=== PATIENT | female | born 1965 | race American Indian/Alaskan Native ===

== ENCOUNTER 2020-06-08 00:09 | Inpatient (IN) | payer OTHER ==
--- NOTE | 2020-06-08 03:21 | Emergency Department Report ---
ED Syncope HPI - General Chief Complaint: Weakness Stated Complaint: WEAKNESS Time Seen by Provider: 06/08/20 03:15 Source: patient Exam Limitations: no limitations - History of Present Illness Initial Comments: Patient is a 55-year-old female that presents emergency room with complaints of weakness, syncope, ankle pain. Patient states she is 1 week since yesterday and passed out this evening. Patient states she then called the ambulance. Patient dates when she passed out she twisted her left ankle. Patient denies hitting her head. Patient denies any other trauma except for her ankle. Patient states her left ankle pain is a 8 out of 10. Patient states the pain is better with rest and worse with movement and walking. Patient states ambulating is difficulty. Patient states she still feels weak but no other symptoms except for ankle pain. Patient denies blurry vision. Patient states her loss of consciousness was brief. Patient denies chest pain or shortness of breath. Patient denies abdominal pain. Patient denies headache. Patient denies fever and chills. Patient denies recent travel. Patient denies recent international travel. Patient denies exposure to the novel coronavirus. Patient denies sick contacts. Patient denies fever and chills. Patient denies cough. Patient denies diarrhea. Patient denies coming in contact with anybody with symptoms of the novel coronavirus. Timing/Prior Episodes: single episode today Context: standing Loss of Consciousness: brief (seconds) Current Symptoms: weakness - Related Data Allergies/Adverse Reactions: Allergies No Known Allergies Allergy (Unverified 10/31/15 13:23) Home Medications: Ambulatory Orders Insulin NPH/Regular [Novolin 70/30] 28 unit SQ QDDIAB #1 vial 11/01/15 Pantoprazole [Protonix TAB] 20 mg PO BID #60 tablet. 11/01/15 Syringe-Needle,Insulin,0.5 ml [Advocate Syringes] 1 each MC BID #1 box 11/01/15 lisinopriL [Zestril] 20 mg PO QDAY 11/01/15 ED Review of Systems ROS: Stated complaint: WEAKNESS Other details as noted in HPI Constitutional: weakness. denies: chills, fever Eyes: denies: eye pain, eye discharge, vision change ENT: denies: ear pain, throat pain Respiratory: denies: cough, shortness of breath, wheezing Cardiovascular: denies: chest pain, palpitations Endocrine: no symptoms reported Gastrointestinal: denies: abdominal pain, nausea, diarrhea Genitourinary: denies: urgency, dysuria, discharge Musculoskeletal: denies: back pain, joint swelling, arthralgia Skin: denies: rash, lesions Neurological: as per HPI, weakness. denies: headache, paresthesias Psychiatric: denies: anxiety, depression Hematological/Lymphatic: denies: easy bleeding, easy bruising ED Past Medical Hx - Past Medical History Previous Medical History?: Yes Hx Hypertension: Yes Hx Diabetes: Yes Hx Renal Disease: No Additional medical history: High Cholesterol. Pancreatitis - Surgical History Past Surgical History?: Yes Additional Surgical History: Tubal ligation - Family History Family history: no significant - Social History Smoking Status: Never Smoker Substance Use Type: None - Medications Home Medications: Home Medications Medication Instructions Recorded Confirmed Last Taken Type Insulin NPH/Regular [Novolin 70/30] 28 unit SQ QDDIAB #1 vial 11/01/15 Unknown Rx Pantoprazole [Protonix TAB] 20 mg PO BID #60 tablet.dr 11/01/15 Unknown Rx Syringe-Needle,Insulin,0.5 ml 1 each MC BID #1 box 11/01/15 Unknown Rx [Advocate Syringes] lisinopriL [Zestril] 20 mg PO QDAY 11/01/15 11/01/15 04/16/15 History ED Physical Exam - General Limitations: No Limitations General appearance: alert, in no apparent distress - Head Head exam: Present: atraumatic, normocephalic - Eye Eye exam: Present: normal appearance - ENT ENT exam: Present: mucous membranes moist - Neck Neck exam: Present: normal inspection - Respiratory Respiratory exam: Present: normal lung sounds bilaterally. Absent: respiratory distress - Cardiovascular Cardiovascular Exam: Present: regular rate, normal rhythm. Absent: systolic murmur, diastolic murmur, rubs, gallop - GI/Abdominal GI/Abdominal exam: Present: soft, normal bowel sounds - Extremities Exam Extremities exam: Present: normal inspection, tenderness (To left ankle) - Back Exam Back exam: Present: normal inspection - Neurological Exam Neurological exam: Present: alert, oriented X3 - Psychiatric Psychiatric exam: Present: normal affect, normal mood - Skin Skin exam: Present: warm, dry, intact, normal color. Absent: rash ED Course Vital Signs 06/08/20 06/08/20 06/08/20 02:28 05:12 05:13 Temperature 97.3 F L Pulse Rate 59 L 59 L Respiratory 18 9 L Rate Blood Pressure 78/52 Blood Pressure 100/78 [left arm] O2 Sat by Pulse 100 100 Oximetry - Reevaluation(s) Reevaluation #1: Patient placed on calibration laboratory technician. Patient's blood pressure is improved. 06/08/20 03:19 Reevaluation #2: Patient's fluids have been started. Patient found to have hyponatremia. 06/08/20 04:20 Reevaluation #3: I discussed all results with patient. I discussed plan of care with patient. Patient agrees with plan of care and admission. Patient to be admitted to the hospitalist service. 06/08/20 05:20 - Consultations Consultation #1: Nephrology paged 06/08/20 04:51 I spoke with nephrology, Dr. Sánchez. Dr. Sánchez wants patient placed on normal saline and admitted to the hospitalist service. 06/08/20 04:53 Consultation #2: Hospitalist consulted for admission. Hospitalist to admit patient. 06/08/20 04:54 ED Medical Decision Making - Lab Data Result diagrams: 06/08/20 02:45 06/08/20 02:45 - EKG Data -: EKG Interpreted by Me EKG shows normal: sinus rhythm, axis, intervals, QRS complexes, ST-T waves Rate: normal - Radiology Data Radiology results: report reviewed, image reviewed interpreted by me: Chest x-ray: No pneumonia, no pneumothorax, no foreign body, no osseous finding s, no acute findings LEFT ANKLE 3 VIEWS INDICATION / CLINICAL INFORMATION: left ankle pain COMPARISON: None available. FINDINGS: BONES / JOINT(S): No acute fracture or subluxation. No significant arthritis. There is subjective osteopenia. There is spurring on the calcaneus at the insertion site of the plantar fascia. SOFT TISSUES: Atherosclerotic calcifications are noted in the posterior tibial artery ADDITIONAL FINDINGS: None. CHEST 1 VIEW INDICATION / CLINICAL INFORMATION: Syncope. COMPARISON: 10/31/2015 FINDINGS: SUPPORT DEVICES: None. HEART / MEDIASTINUM: No significant abnormality. LUNGS / PLEURA: No significant pulmonary or pleural abnormality.. No pneumothorax. ADDITIONAL FINDINGS: No significant additional findings. IMPRESSION: 1. No acute findings. CT HEAD WITHOUT CONTRAST INDICATION: Syncope TECHNIQUE: Axial slices were obtained through the head. Coronal and sagittal reformatted images were obtained. COMPARISON: None available. FINDINGS: There is no intracranial hemorrhage or extra-axial fluid collection. There is mild atrophy and microangiopathic change. The ventricles are normal in size and position. The basal cisterns are maintained. There is no mass lesion or midline shift. No acute territorial infarct is identified. Bone windows demonstrate no acute osseous abnormality. Paranasal sinuses and mastoid air cells appear clear. TECHNIQUE: All CT scans at this facility use dose modulation, iterative reconstruction, automated exposure control, weight based dosing, when appropriate, to reduce radiation dose to as low as reasonably achievable. IMPRESSION: 1. No acute intracranial abnormality. 2. There is mild cortical atrophy and microangiopathic change - Medical Decision Making Patient is a 55-year-old female that presents emergency room with complaints of syncopal episode and weakness. Patient states during her syncopal episode she injured her left ankle. Patient had a head CT and it was negative for acute findings. Patient had a chest x-ray was negative for acute findings. Patient's ankle x-ray was negative. Patient initially found to be hypotensive. Patient's blood pressure improved on its own. Patient had labs done which were consistent with renal failure, hyponatremia and anemia. Patient admitted to the hospitalist service for further evaluation treatment. Nephrology consult. Nephrology recommendations received. Nephrology recommended normal saline and admission. - Differential Diagnosis Electrolyte imbalance, dehydration, syncope, weakness, Critical Care Time: Yes Critical care time in (mins) excluding proc time.: 35 Critical care attestation.: If time is entered above; I have spent that time in minutes in the direct care of this critically ill patient, excluding procedure time. Critical Care Time: 35 minutes ED Disposition Clinical Impression: Hyponatremia, Hyperglycemia, Abnormal LFTs (liver function tests), Weakness Renal failure Qualifiers: Renal failure chronicity: acute Acute renal failure type: unspecified Qualified Code(s): N17.9 - Acute kidney failure, unspecified Syncope Qualifiers: Syncope type: unspecified Qualified Code(s): R55 - Syncope and collapse Ankle pain, left Qualifiers: Chronicity: acute Qualified Code(s): M25.572 - Pain in left ankle and joints of left foot Left ankle sprain Qualifiers: Encounter type: initial encounter Involved ligament of ankle: unspecified ligament Qualified Code(s): S93.402A - Sprain of unspecified ligament of left ankle, initial encounter Anemia Qualifiers: Anemia type: unspecified type Qualified Code(s): D64.9 - Anemia, unspecified Hypotension Qualifiers: Hypotension type: unspecified hypotension type Qualified Code(s): I95.9 - Hypotension, unspecified Disposition: OP ADMIT IP TO THIS HOSP Is pt being admited?: Yes Does the pt Need Aspirin: No Condition: Critical Time of Disposition: 05:22
--- NOTE | 2020-06-08 03:27 | XRay Report ---
LEFT ANKLE 3 VIEWS INDICATION / CLINICAL INFORMATION: left ankle pain COMPARISON: None available. FINDINGS: BONES / JOINT(S): No acute fracture or subluxation. No significant arthritis. There is subjective ost eopenia. There is spurring on the calcaneus at the insertion site of the plantar fascia. SOFT TISSUES: Atherosclerotic calcifications are noted in the posterior tibial artery ADDITIONAL FINDINGS: None. Signer Name: Lebron Lemus MD Signed: 06/08/2020 3:23 AM Workstation Name: [id number]
[2020-06-08 03:33] LABS: Hematocrit 29.3 % (30.3-42.9); Hemoglobin 9.7 gm/dl (10.1-14.3); Mean Corpuscular HGB Conc 33 % (30-34); Mean Corpuscular Volume 76 fl (79-97); Platelet Count 190 K/mm3 (140-440); Red Blood Count 3.85 M/mm3 (3.65-5.03); Red Cell Distribution Width 15.3 % (13.2-15.2)
[2020-06-08 03:45] LABS: Basophils # (Auto) 0.1 K/mm3 (0.0-0.1); Basophils % (Auto) 1.4 % (0.0-1.8); Eosinophils % (Auto) 1.2 % (0.0-4.3); Lymphocytes # (Auto) 0.5 K/mm3 (1.2-5.4); Lymphocytes % (Auto) 12.2 % (13.4-35.0); Monocytes # (Auto) 0.6 K/mm3 (0.0-0.8); Monocytes % (Auto) 14.9 % (0.0-7.3)
--- NOTE | 2020-06-08 03:56 | XRay Report ---
CHEST 1 VIEW INDICATION / CLINICAL INFORMATION: Syncope. COMPARISON: 10/31/2015 FINDINGS: SUPPORT DEVICES: None. HEART / MEDIASTINUM: No significant abnormality. LUNGS / PLEURA: No significant pulmonary or pleural abnormality.. No pneumothorax. ADDITIONAL FINDINGS: No significant additional findings. IMPRESSION: 1. No acute findings. Signer Name: Lebron Lemus MD Signed: 06/08/2020 3:51 AM Workstation Name: [employer]ING [id number]
[2020-06-08 03:58] LABS: Albumin 3.3 g/dL (3.9-5); Calcium 9.2 mg/dL (8.4-10.2)
--- NOTE | 2020-06-08 04:02 | Cat Scan Report ---
CT HEAD WITHOUT CONTRAST INDICATION: Syncope TECHNIQUE: Axial slices were obtained through the head. Coronal and sagittal reformatted images were obtained. COMPARISON: None available. FINDINGS: There is no intracranial hemorrhage or extra-axial fluid collection. There is mild atrophy and microa ngiopathic change. The ventricles are normal in size and position. The basal cisterns are maintained. There is no mass lesion or midline shift. No acute territorial infarct is identified. Bone windows demonstrate no acute osseous abnormality. Paranasal sinuses and mastoid air cells appear clear. TECHNIQUE: All CT scans at this facility use dose modulation, iterative reconstruction, automated ex posure control, weight based dosing, when appropriate, to reduce radiation dose to as low as reasonab ly achievable. IMPRESSION: 1. No acute intracranial abnormality. 2. There is mild cortical atrophy and microangiopathic change Signer Name: Lebron Lemus MD Signed: 06/08/2020 3:58 AM Workstation Name: [id number]
[2020-06-08 04:36] LABS: Bilirubin,Urine NEG (Negative); Blood,Urine NEG (Negative); Color,Urine Yellow (Yellow); Mucus,Urine FEW /HPF; Protein,Urine <15 mg/dL mg/dL (Negative); Urobilinogen,Urine < 2.0 mg/dL (<2.0)
[2020-06-08 04:51] LABS: Creatine Kinase MB 3.1 ng/mL (0.0-4.0)
[2020-06-08] MEDS ORDERED: SODIUM CHLORIDE 0.9% 1000 ML 1,000 ML IV ONE ×2 (04:58→05:01)
--- NOTE | 2020-06-08 09:39 | Consultation ---
History of Present Illness - Reason for Consult Consult date: 06/08/20 acute renal failure, hyponatremia - History of Present Illness The patient is a 55 YO female with history significant for Dm type 2, HTN and HLD who presented to [facility] ED 06/08 with complaints of generalized weakness and passing out. Patient is a poor historian. She states that she has been passing out since last week. Patient admits twisting her left ankle when she passed out. Patient denies hitting her head. Patient states she lost some weight, couldn't give me more details. Patient denies N, V, D, abd pain, blurry vision, chest pain, shortness of breath, headache, fever or chills. Patient denies recent travel or exposure to anyone with coronavirus infection. Initial BP was 78/52. Labs significant for Sodium 119, BUN 45, Creat 3 and glucose 369. Nephrology was consulted for further evaluation. Past History Past Medical History: diabetes, hypertension, hyperlipidemia Medications and Allergies Allergies Allergy/AdvReac Type Severity Reaction Status Date / Time No Known Allergies Allergy Unverified 10/31/15 13:23 Home Medications Medication Instructions Recorded Confirmed Last Taken Type AtorvaSTATin [Lipitor] 20 mg PO QHS 06/08/20 06/08/20 Unknown History Esomeprazole Magnesium [NexIUM] 40 mg PO QDAY 06/08/20 06/08/20 Unknown History Folic Acid [Folvite] 1 mg PO QDAY 06/08/20 06/08/20 Unknown History Furosemide [Lasix TAB] 20 mg PO DAILY 06/08/20 06/08/20 Unknown History Gabapentin 400 mg PO DAILY 06/08/20 06/08/20 Unknown History Ibuprofen [Motrin] 800 mg PO Q8HR PRN 06/08/20 06/08/20 Unknown History Insulin Lispro [Humalog Yeyo 100 unit SQ DAILY 06/08/20 06/08/20 Unknown History Kwikpen] Methocarbamol [Robaxin] 750 mg PO DAILY 06/08/20 06/08/20 Unknown History Pregabalin [Lyrica] 150 mg PO DAILY 06/08/20 06/08/20 Unknown History Sertraline [Zoloft] 50 mg PO DAILY 06/08/20 06/08/20 Unknown History Spironolactone [Aldactone] 50 mg PO QDAY 06/08/20 06/08/20 Unknown History traZODone [Desyrel] 50 mg PO QHS 06/08/20 06/08/20 Unknown History Exam - Vital Signs Vital signs: Vital Signs Temp Pulse Resp BP Pulse Ox 97.3 F L 59 L 18 78/52 100 06/08/20 02:28 06/08/20 02:28 06/08/20 02:28 06/08/20 02:28 06/08/20 02:28 Results - Lab Results 06/08/20 02:45 06/08/20 10:07 Most recent lab results Calcium 9.2 mg/dL (8.4-10.2) 06/08/20 02:45 Assessment and Plan 1. Acute kidney injury: Vasomotor nephropathy in the setting of volume depletion and hypotension. Renal US negative for hydro. Urine studies ordered. Monitor renal function. Repeat labs pending. Avoid nephrotoxic agents. Meds dosage based on GFR. 2. FEN: Acute Hyponatremia, 2/2 volume depletion, continue 0.9% saline, monitor. Initial corrected Sodium level was 125. Monitor lytes. 3. Syncope: Likely from hypotension. Place on remote telemetry. Ultrasound carotid and Echocardiogram ordered. 4. Ankle pain, left: X-ray of left ankle negative for any fracture. Pain medications as needed 5. Chronic pancreatitis: Needs to follow-up with Mason Foreman/Superintendant in the office for complete work-up. 6. Diabetes mellitus: Sliding scale insulin. 7. Hypertension: initial hypotension. Monitor blood pressure closely. Subjective: Patient was seen and examined at the bedside. - General Appearance General appearance: well-developed, well-nourished, appears stated age, no distress HEENT: ATNC, SONNY, hearing intact, vision intact Neck: supple Respiratory: ctab Cardiology: regular, S1S2, no murmur Gastrointestinal: normoactive bowel sounds, no tenderness, not distended Integumentary: no obvious rash Neurologic: no asterixis, alert and oriented x3, able to move extremities Ext: no edema noted Psychiatric: cooperative
--- NOTE | 2020-06-08 10:24 | History and Physical Report ---
History of Present Illness Date of admission: 06/08/20 05:23 Chief complaint: Lethargy History of present illness: 55-year-old female with a medical history of HTN, DM, GERD, depression and med ication Noncompliance who presents to the emergency room with chief complaints of generalized weakness. Patient states that she has been having generalized weakness for about a week prior to presentation. She also notes that she may have lost some weight in the past 1 month. She denies any change in her diet but states that each time she eats, she has a bowel movement immediately afterwards. She mentions that she has had colonoscopy in the past but is unsure about the timing. History during my encounter was limited as patient was very lethargic. On the day of presentation, patient reportedly got up and then passed out. She twisted her ankle in the process. She denies any trauma to her head. She said that she called the ambulance due to severe ankle pain as it was worse with movement. She says she may have lost consciousness but she is unsure. Patient denies chest pain or shortness of breath. Patient denies abdominal pain. Patient denies headache. Patient denies fever and chills. Patient denies recent travel. Patient denies recent international travel. Patient denies exposure to the novel coronavirus. Patient denies sick contacts. Patient denies fever and chills. Patient denies cough. In emergency room, patient was noted to have sodium of 119 so she was then a dmitted to the hospital. X-ray of the left ankle is negative for any fracture. Past History Past Medical History: diabetes, GERD, hypertension Medications and Allergies Allergies Allergy/AdvReac Type Severity Reaction Status Date / Time No Known Allergies Allergy Unverified 10/31/15 13:23 Home Medications Medication Instructions Recorded Confirmed Last Taken Type AtorvaSTATin [Lipitor] 20 mg PO QHS 06/08/20 06/08/20 Unknown History Esomeprazole Magnesium [NexIUM] 40 mg PO QDAY 06/08/20 06/08/20 Unknown History Folic Acid [Folvite] 1 mg PO QDAY 06/08/20 06/08/20 Unknown History Furosemide [Lasix TAB] 20 mg PO DAILY 06/08/20 06/08/20 Unknown History Gabapentin 400 mg PO DAILY 06/08/20 06/08/20 Unknown History Ibuprofen [Motrin] 800 mg PO Q8HR PRN 06/08/20 06/08/20 Unknown History Insulin Lispro [Humalog Yeyo 100 unit SQ DAILY 06/08/20 06/08/20 Unknown History Kwikpen] Methocarbamol [Robaxin] 750 mg PO DAILY 06/08/20 06/08/20 Unknown History Pregabalin [Lyrica] 150 mg PO DAILY 06/08/20 06/08/20 Unknown History Sertraline [Zoloft] 50 mg PO DAILY 06/08/20 06/08/20 Unknown History Spironolactone [Aldactone] 50 mg PO QDAY 06/08/20 06/08/20 Unknown History traZODone [Desyrel] 50 mg PO QHS 06/08/20 06/08/20 Unknown History Review of Systems ROS unobtainable: due to mental status Exam - Physical Exam Narrative exam: VITAL SIGNS: Reviewed. GENERAL: Drowsy HEAD: No signs of head trauma. EYES: Pupils are equal. Extraocular motions intact. EARS: Hearing grossly intact. MOUTH: Oropharynx is normal. NECK: No adenopathy, no JVD. CHEST: Chest with diminished breath sounds bilaterally. No wheezes, rales, or rhonchi. CARDIAC: Regular rate and rhythm. S1 and S2, without murmurs, gallops, or rubs. VASCULAR: No Edema. Peripheral pulses normal and equal in all extremities. ABDOMEN: Soft, non tender and non distended. No rebound or guarding, and no masses palpated. Bowel Sounds normal. MUSCULOSKELETAL: Left ankle-slightly swollen with ROM limited NEUROLOGIC EXAM: Drowsy SKIN: No obvious lesions - Constitutional Vitals: Temp Pulse Resp BP Pulse Ox 97.3 F L 60 16 112/71 98 06/08/20 02:28 06/08/20 10:12 06/08/20 10:12 06/08/20 10:12 06/08/20 10:12 HEART Score - HEART Score Troponin: Troponin T < 0.010 ng/mL (0.00-0.029) 06/08/20 03:59 Results - Labs CBC & Chem 7: 06/08/20 02:45 06/08/20 02:45 Labs: Laboratory Last Values WBC 4.2 K/mm3 (4.5-11.0) L 06/08/20 02:45 RBC 3.85 M/mm3 (3.65-5.03) 06/08/20 02:45 Hgb 9.7 gm/dl (10.1-14.3) L 06/08/20 02:45 Hct 29.3 % (30.3-42.9) L 06/08/20 02:45 MCV 76 fl (79-97) L 06/08/20 02:45 MCH 25 pg (28-32) L 06/08/20 02:45 MCHC 33 % (30-34) 06/08/20 02:45 RDW 15.3 % (13.2-15.2) H 06/08/20 02:45 Plt Count 190 K/mm3 (140-440) 06/08/20 02:45 Lymph % (Auto) 12.2 % (13.4-35.0) L 06/08/20 02:45 [place] % (Auto) 14.9 % (0.0-7.3) H 06/08/20 02:45 Eos % (Auto) 1.2 % (0.0-4.3) 06/08/20 02:45 Baso % (Auto) 1.4 % (0.0-1.8) 06/08/20 02:45 Lymph # (Auto) 0.5 K/mm3 (1.2-5.4) L 06/08/20 02:45 [place] # (Auto) 0.6 K/mm3 (0.0-0.8) 06/08/20 02:45 Eos # (Auto) 0.0 K/mm3 (0.0-0.4) 06/08/20 02:45 Baso # (Auto) 0.1 K/mm3 (0.0-0.1) 06/08/20 02:45 Seg Neutrophils % 70.3 % (40.0-70.0) H 06/08/20 02:45 Seg Neutrophils # 3.0 K/mm3 (1.8-7.7) 06/08/20 02:45 D-Dimer 257.50 ng/mlDDU (0-234) H 06/08/20 03:59 Sodium 119 mmol/L (137-145) L* 06/08/20 02:45 Potassium 4.6 mmol/L (3.6-5.0) 06/08/20 02:45 Chloride 81.7 mmol/L (98-107) L 06/08/20 02:45 Carbon Dioxide 22 mmol/L (22-30) 06/08/20 02:45 Anion Gap 20 mmol/L 06/08/20 02:45 BUN 45 mg/dL (7-17) H 06/08/20 02:45 Creatinine 3.0 mg/dL (0.6-1.2) H 06/08/20 02:45 Estimated GFR 19 ml/min 06/08/20 02:45 BUN/Creatinine Ratio 15 % 06/08/20 02:45 Glucose 369 mg/dL (65-100) H 06/08/20 02:45 Calcium 9.2 mg/dL (8.4-10.2) 06/08/20 02:45 Total Bilirubin 0.80 mg/dL (0.1-1.2) 06/08/20 02:45 AST 31 units/L (5-40) 06/08/20 02:45 ALT 102 units/L (7-56) H 06/08/20 02:45 Alkaline Phosphatase 165 units/L (35-129) H 06/08/20 02:45 Total Creatine Kinase 57 units/L (30-135) 06/08/20 03:59 CK-MB (CK-2) 3.1 ng/mL (0.0-4.0) 06/08/20 03:59 CK-MB (CK-2) Rel Index 5.4 (0-4) H 06/08/20 03:59 Troponin T < 0.010 ng/mL (0.00-0.029) 06/08/20 03:59 Total Protein 6.3 g/dL (6.3-8.2) 06/08/20 02:45 Albumin 3.3 g/dL (3.9-5) L 06/08/20 02:45 Albumin/Globulin Ratio 1.1 % 06/08/20 02:45 Lipase 6 units/L (13-60) L 06/08/20 02:45 Urine Color Yellow (Yellow) 06/08/20 Unknown Urine Turbidity Clear (Clear) 06/08/20 Unknown Urine pH 5.0 (5.0-7.0) 06/08/20 Unknown Ur Specific [place] 1.014 (1.003-1.030) 06/08/20 Unknown Urine Protein <15 mg/dl mg/dL (Negative) 06/08/20 Unknown Urine Glucose (UA) >=500 mg/dL (Negative) 06/08/20 Unknown Urine Ketones Neg mg/dL (Negative) 06/08/20 Unknown Urine Blood Neg (Negative) 06/08/20 Unknown Urine Nitrite Neg (Negative) 06/08/20 Unknown Urine Bilirubin Neg (Negative) 06/08/20 Unknown Urine Urobilinogen < 2.0 mg/dL (<2.0) 06/08/20 Unknown Ur Leukocyte Esterase Neg (Negative) 06/08/20 Unknown Urine WBC (Auto) 3.0 /HPF (0.0-6.0) 06/08/20 Unknown Urine RBC (Auto) 9.0 /HPF (0.0-6.0) 06/08/20 Unknown U Epithel Cells (Auto) 1.0 /HPF (0-13.0) 06/08/20 Unknown Urine Mucus Few /HPF 06/08/20 Unknown Tracey/IV: IV Catheter Type [left forearm Peripheral IV ] Assessment and Plan - Patient Problems (1) Hyponatremia Current Visit: Yes Status: Acute Plan to address problem: Patient has severe hyponatremia-sodium 119 Check osmolality and serum, urine osmolality and urine electrolytes. TSH cortisol Continue IV normal saline Nephrology has been consulted. May need tolvaptan if not improving BMP every 6 hours Hold Lasix and Aldactone for now (2) Syncope Current Visit: Yes Status: Acute Qualifiers: Syncope type: unspecified Qualified Code(s): R55 - Syncope and collapse Plan to address problem: Place on remote telemetry for now Ultrasound carotid. Echocardiogram (3) Ankle pain, left Current Visit: Yes Status: Acute Qualifiers: Chronicity: acute Qualified Code(s): M25.572 - Pain in left ankle and joints of left foot Plan to address problem: X-ray of left ankle negative for any fracture Pain medications as needed (4) Chronic pancreatitis Current Visit: No Status: Acute Plan to address problem: Patient reports loose stools after eating May need supplemental pancreatic enzymes Needs to follow-up with animal nutrition consultant in the office for complete work-up (5) Diabetes mellitus Current Visit: Yes Status: Acute Plan to address problem: Check hemoglobin A1c Sliding scale insulin (6) Hypertension Current Visit: Yes Status: Acute Plan to address problem: Monitor blood pressure closely (7) GERD (gastroesophageal reflux disease) Current Visit: Yes Status: Acute Plan to address problem: PPI (8) DVT prophylaxis Current Visit: No Status: Acute Plan to address problem: Heparin
--- NOTE | 2020-06-08 10:27 | Ultrasound Report ---
ULTRASOUND RENAL INDICATION: Acute renal failure.. Acute renal failure. COMPARISON: No relevant prior imaging study available. FINDINGS: RIGHT KIDNEY: Size: 11.62 cm. Echogenicity: Minimum increased echogenicity. Cortical thickness: 1.64 cm. Hydronephrosis: None. Cyst or mass: None. Stones: None. LEFT KIDNEY: Size: 11.3 cm. Echogenicity: Normal. Cortical thickness: 1.89 cm. Hydronephrosis: None. Cyst or mass: None. Stones: None. Urinary Bladder: No significant abnormality. Free Fluid: None. Additional Findings: None. IMPRESSION 1. No acute sonographic abnormality of the kidneys. Please see comments Signer Name: Lele Houston MD Signed: 06/08/2020 10:22 AM Workstation Name: [id number]
[2020-06-08 10:30] LABS: Creatinine,Urine 33.2 mg/dL (0.1-20.0); Protein/Creatinine Ratio,Urine 0.42
[2020-06-08 10:46] LABS: Calcium 9.3 mg/dL (8.4-10.2)
[2020-06-08 10:50] LABS: Uric Acid 9.3 mg/dL (3.5-7.6)
[2020-06-08] MEDS ORDERED: SODIUM POLYSTYRENE 15 GM/60 ML ORAL LIQD PO NR (10:50)
[2020-06-08] MEDS ORDERED: DEXTROSE 50% IN WATER (25GM) 50 ML SYRINGE IV PRN (11:00)
[2020-06-08] MEDS ORDERED: INSULIN REGULAR, HUMAN 100 UNIT/ML 3ML VIAL ONE (11:10)
[2020-06-08] MEDS ORDERED: INSULIN LISPRO 100 UNIT/ML VIAL 3 mL SUB-Q ONE (11:13)
[2020-06-08] MEDS: INSULIN LISPRO 100 UNIT/ML VIAL 3 mL SUB-Q SCH ×3 (11:15→22:46)
[2020-06-08] MEDS ORDERED: INSULIN GLARGINE 100 UNITS/ML SUB-Q ONE (12:00)
[2020-06-08] MEDS: HEPARIN 5,000 UNIT/1 ML VIAL SUB-Q SCH ×2 (13:24→22:33)
--- NOTE | 2020-06-08 15:56 | Vascular Lab Report ---
CLINICAL DATA: Syncope TECHNICAL DATA: Imaging was performed from the base of the neck to the skull base using duplex sonography and color-f low imaging with emphasis on the carotid and vertebral arterial systems. RIGHT CAROTID ARTERY: The right internal carotid artery, right external carotid, and right common carotid artery all well i heidi and patent. Mild atherosclerotic plaque present at the carotid bifurcation. Right common carotid artery peak systolic velocity 53 cm/sec Right internal carotid artery peak systolic velocity 93 cm/sec Right internal carotid artery end diastolic velocity 43cm/sec Right internal carotid artery/right common carotid artery ratio 1.7 Vertebral artery flow is antegrade. LEFT CAROTID ARTERY The left internal carotid artery, left external carotid, and left common carotid artery all well imag ed and patent. Mild atherosclerotic plaque present at the carotid bifurcation. Left common carotid artery peak systolic velocity 68 cm/sec Left internal carotid artery peak systolic velocity 68 cm/sec Left internal carotid artery end diastolic velocity 28 cm/sec Left internal carotid artery/right common carotid artery ratio 1.0 Normal antegrade flow of the vertebral arteries. IMPRESSION: 1. Sonographic NASCET Index This study proposed the incorporation of distal ICA flow velocity information on the conventional car otid Doppler study improving the diagnostic accuracy of PSV 1. Internal carotids arteries demonstrate <15% stenosis: * deceleration spectral broadening with a peak systolic velocity (PSV) <125 cm/s 2. Less than 50% stenosis common carotid arteries. 3. Less than 50% stenosis external carotid arteries. 4. Antegrade flow both vertebral arteries. Signer Name: Lele Huoston MD Signed: 06/08/2020 3:51 PM Workstation Name: [id number]
[2020-06-08] MEDS ORDERED: SODIUM CHLORIDE 0.9% 1000 ML 1,000 ML IV SCH (16:30)
[2020-06-08 19:48] LABS: Calcium 10.1 mg/dL (8.4-10.2)
[2020-06-08] MEDS ORDERED: INSULIN GLARGINE 100 UNITS/ML SUB-Q SCH (22:00)
[2020-06-08] MEDS ORDERED: SODIUM CHLORIDE 0.45% 1000 ML 1,000 ML IV SCH (22:00)
[2020-06-08] MEDS: PREGABALIN 75 MG CAP PO SCH (22:34)
[2020-06-09 02:27] LABS: Calcium 9.4 mg/dL (8.4-10.2)
[2020-06-09 05:21] LABS: Basophils % (Auto) 0.7 % (0.0-1.8); Eosinophils # (Auto) 0.1 K/mm3 (0.0-0.4); Eosinophils % (Auto) 1.5 % (0.0-4.3); Hematocrit 30.7 % (30.3-42.9); Hemoglobin 10.2 gm/dl (10.1-14.3); Lymphocytes # (Auto) 1.3 K/mm3 (1.2-5.4); Lymphocytes % (Auto) 22.7 % (13.4-35.0); Mean Corpuscular HGB Conc 33 % (30-34); Mean Corpuscular Volume 77 fl (79-97); Monocytes # (Auto) 0.7 K/mm3 (0.0-0.8); Monocytes % (Auto) 13.2 % (0.0-7.3); Platelet Count 159 K/mm3 (140-440); Red Blood Count 3.99 M/mm3 (3.65-5.03); Red Cell Distribution Width 15.5 % (13.2-15.2)
[2020-06-09 05:57] LABS: Calcium 9.7 mg/dL (8.4-10.2)
[2020-06-09] MEDS: HEPARIN 5,000 UNIT/1 ML VIAL SUB-Q SCH ×3 (06:01→21:12)
[2020-06-09] MEDS: INSULIN LISPRO 100 UNIT/ML VIAL 3 mL SUB-Q SCH ×4 (08:27→21:47)
--- NOTE | 2020-06-09 09:45 | Progress Note ---
Assessment and Plan - Patient Problems (1) Hyponatremia Current Visit: Yes Status: Acute Plan to address problem: Patient admitted with hyponatremia-sodium 119 Check osmolality and serum, urine osmolality and urine electrolytes. TSH cortisol Started on IV normal saline Sodium has improved to 133 today. Holding Lasix and Aldactone for now Nephrology recommendations appreciated (2) Syncope Current Visit: Yes Status: Acute Qualifiers: Syncope type: unspecified Qualified Code(s): R55 - Syncope and collapse Plan to address problem: Place on remote telemetry for now Ultrasound carotid. Echocardiogram pending (3) Ankle pain, left Current Visit: Yes Status: Acute Qualifiers: Chronicity: acute Qualified Code(s): M25.572 - Pain in left ankle and joints of left foot Plan to address problem: X-ray of left ankle negative for any fracture Pain medications as needed (4) Chronic pancreatitis Current Visit: No Status: Acute Plan to address problem: Patient reports loose stools after eating May need supplemental pancreatic enzymes Needs to follow-up with engineering technical analyst in the office for complete work-up (5) Diabetes mellitus Current Visit: Yes Status: Acute Plan to address problem: Has poorly controlled diabetes with hemoglobin A1c 14 Lantus and sliding scale insulin (6) Hypertension Current Visit: Yes Status: Acute Plan to address problem: Monitor blood pressure closely (7) GERD (gastroesophageal reflux disease) Current Visit: Yes Status: Acute Plan to address problem: PPI (8) DVT prophylaxis Current Visit: No Status: Acute Plan to address problem: Heparin History Interval history: Patient seen and examined at bedside this morning. Her sodium has improved. Nephrology is on board. Transfer from [facility] to the [facility] Hospitalist Physical - Physical exam Narrative exam: VITAL SIGNS: Reviewed. GENERAL: Alert and oriented x3 HEAD: No signs of head trauma. EYES: Pupils are equal. Extraocular motions intact. EARS: Hearing grossly intact. MOUTH: Oropharynx is normal. NECK: No adenopathy, no JVD. CHEST: Chest with diminished breath sounds bilaterally. No wheezes, rales, or rhonchi. CARDIAC: Regular rate and rhythm. S1 and S2, without murmurs, gallops, or rubs. VASCULAR: No Edema. Peripheral pulses normal and equal in all extremities. ABDOMEN: Soft, non tender and non distended. No rebound or guarding, and no masses palpated. Bowel Sounds normal. MUSCULOSKELETAL: Left ankle-slightly swollen with ROM limited NEUROLOGIC EXAM: Alert and oriented x3 SKIN: No obvious lesions - Constitutional Vitals: Temp Pulse Resp BP Pulse Ox 97.5 F L 67 13 104/84 97 06/09/20 08:00 06/09/20 08:01 06/09/20 08:01 06/09/20 08:01 06/09/20 08:01 HEART Score - HEART Score Troponin: Troponin T < 0.010 ng/mL (0.00-0.029) 06/08/20 03:59 Results - Labs CBC & Chem 7: 06/09/20 04:57 06/09/20 04:57 Labs: Laboratory Last Values WBC 5.6 K/mm3 (4.5-11.0) 06/09/20 04:57 RBC 3.99 M/mm3 (3.65-5.03) 06/09/20 04:57 Hgb 10.2 gm/dl (10.1-14.3) 06/09/20 04:57 Hct 30.7 % (30.3-42.9) 06/09/20 04:57 MCV 77 fl (79-97) L 06/09/20 04:57 MCH 26 pg (28-32) L 06/09/20 04:57 MCHC 33 % (30-34) 06/09/20 04:57 RDW 15.5 % (13.2-15.2) H 06/09/20 04:57 Plt Count 159 K/mm3 (140-440) 06/09/20 04:57 Lymph % (Auto) 22.7 % (13.4-35.0) 06/09/20 04:57 [place] % (Auto) 13.2 % (0.0-7.3) H 06/09/20 04:57 Eos % (Auto) 1.5 % (0.0-4.3) 06/09/20 04:57 Baso % (Auto) 0.7 % (0.0-1.8) 06/09/20 04:57 Lymph # (Auto) 1.3 K/mm3 (1.2-5.4) 06/09/20 04:57 [place] # (Auto) 0.7 K/mm3 (0.0-0.8) 06/09/20 04:57 Eos # (Auto) 0.1 K/mm3 (0.0-0.4) 06/09/20 04:57 Baso # (Auto) 0.0 K/mm3 (0.0-0.1) 06/09/20 04:57 Seg Neutrophils % 61.9 % (40.0-70.0) 06/09/20 04:57 Seg Neutrophils # 3.4 K/mm3 (1.8-7.7) 06/09/20 04:57 D-Dimer 257.50 ng/mlDDU (0-234) H 06/08/20 03:59 Sodium 133 mmol/L (137-145) L 06/09/20 04:57 Potassium 4.7 mmol/L (3.6-5.0) 06/09/20 04:57 Chloride 104.6 mmol/L (98-107) 06/09/20 04:57 Carbon Dioxide 18 mmol/L (22-30) L 06/09/20 04:57 Anion Gap 15 mmol/L 06/09/20 04:57 BUN 31 mg/dL (7-17) H 06/09/20 04:57 Creatinine 1.3 mg/dL (0.6-1.2) H 06/09/20 04:57 Estimated GFR 51 ml/min 06/09/20 04:57 BUN/Creatinine Ratio 24 % 06/09/20 04:57 Glucose 51 mg/dL (65-100) L 06/09/20 04:57 POC Glucose 136 mg/dL (70-105) H 06/09/20 08:36 Hemoglobin A1c 14.6 % (4-6) H 06/08/20 10:38 Osmolality 295 Mosm/kg 06/08/20 10:07 Uric Acid 9.3 mg/dL (3.5-7.6) H 06/08/20 10:07 Calcium 9.7 mg/dL (8.4-10.2) 06/09/20 04:57 Phosphorus 3.90 mg/dL (2.5-4.5) 06/08/20 10:07 Magnesium 2.50 mg/dL (1.7-2.3) H 06/08/20 10:07 Total Bilirubin 0.80 mg/dL (0.1-1.2) 06/08/20 02:45 AST 31 units/L (5-40) 06/08/20 02:45 ALT 102 units/L (7-56) H 06/08/20 02:45 Alkaline Phosphatase 165 units/L (35-129) H 06/08/20 02:45 Total Creatine Kinase 57 units/L (30-135) 06/08/20 03:59 CK-MB (CK-2) 3.1 ng/mL (0.0-4.0) 06/08/20 03:59 CK-MB (CK-2) Rel Index 5.4 (0-4) H 06/08/20 03:59 Troponin T < 0.010 ng/mL (0.00-0.029) 06/08/20 03:59 Total Protein 6.3 g/dL (6.3-8.2) 06/08/20 02:45 Albumin 3.3 g/dL (3.9-5) L 06/08/20 02:45 Albumin/Globulin Ratio 1.1 % 06/08/20 02:45 Lipase 6 units/L (13-60) L 06/08/20 02:45 Vitamin B12 < 2000 pg/mL (211-911) H 06/08/20 10:38 Folate < 20.00 ng/mL (7.3-26.0) 06/08/20 10:38 TSH 1.620 mlU/mL (0.270-4.200) 06/08/20 10:38 PTH Intact 57.96 pg/mL (15-65) 06/08/20 10:07 Urine Color Yellow (Yellow) 06/08/20 Unknown Urine Turbidity Clear (Clear) 06/08/20 Unknown Urine pH 5.0 (5.0-7.0) 06/08/20 Unknown Ur Specific [place] 1.014 (1.003-1.030) 06/08/20 Unknown Urine Protein <15 mg/dl mg/dL (Negative) 06/08/20 Unknown Urine Glucose (UA) >=500 mg/dL (Negative) 06/08/20 Unknown Urine Ketones Neg mg/dL (Negative) 06/08/20 Unknown Urine Blood Neg (Negative) 06/08/20 Unknown Urine Nitrite Neg (Negative) 06/08/20 Unknown Urine Bilirubin Neg (Negative) 06/08/20 Unknown Urine Urobilinogen < 2.0 mg/dL (<2.0) 06/08/20 Unknown Ur Leukocyte Esterase Neg (Negative) 06/08/20 Unknown Urine WBC (Auto) 3.0 /HPF (0.0-6.0) 06/08/20 Unknown Urine RBC (Auto) 9.0 /HPF (0.0-6.0) 06/08/20 Unknown U Epithel Cells (Auto) 1.0 /HPF (0-13.0) 06/08/20 Unknown Urine Mucus Few /HPF 06/08/20 Unknown Urine Eosinophils None seen (None Seen) 06/08/20 10:11 Urine Osmolality 299 Mosm/kg 06/08/20 10:11 Urine Creatinine 33.2 mg/dL (0.1-20.0) H 06/08/20 10:11 Protein/Creatinin Ratio 0.42 06/08/20 10:11 Urine Sodium 39 mmol/L 06/08/20 10:11 Urine Total Protein 14 mg/dL (5-11.8) H 06/08/20 10:11 Tracey/IV: Voiding Method External Female Catheter IV Catheter Type [left forearm Peripheral IV ] Active Medications - Current Medications Current Medications: Generic Name Dose Route Start Last Admin Trade Name Freq PRN Reason Stop Dose Admin Dextrose 50 ml 06/08/20 11:00 06/09/20 07:35 D50w (25gm) Syringe IV 50 ml Q30MIN PRN Administration Hypoglycemia Protocol Folic Acid 1 mg 06/09/20 10:00 Folvite PO QDAY LUIS Heparin Sodium (Porcine) 5,000 unit 06/08/20 14:00 06/09/20 06:01 Heparin SUB-Q 5,000 unit Q8HR LUIS Administration Hydromorphone HCl 1 mg 06/08/20 21:00 Dilaudid IV Q4H PRN Pain , Severe (7-10) Sodium Chloride 1,000 mls @ 75 mls/hr 06/08/20 22:00 06/08/20 22:36 Nacl 0.45% 1000 Ml IV 75 mls/hr DIRECT LUIS Administration Insulin Glargine 10 units 06/08/20 22:00 06/08/20 22:45 Lantus SUB-Q 10 units QHS LUIS Administration Insulin Human Lispro 0 unit 06/08/20 11:30 06/09/20 08:27 Humalog SUB-Q Not Given ACHS LUIS Protocol Pregabalin 150 mg 10/23/20 22:00 06/08/20 22:34 Pregabalin PO 150 mg BID LUIS Administration Sertraline HCl 50 mg 06/09/20 10:00 Zoloft PO DAILY LUIS Sodium Chloride 10 ml 06/08/20 22:00 06/08/20 22:35 Sodium Chloride Flush Syringe 10 Ml IV 10 ml BID LUIS Administration Sodium Chloride 10 ml 06/08/20 10:09 Sodium Chloride Flush Syringe 10 Ml IV PRN PRN LINE FLUSH Nutrition/Malnutrition Assess - Dietary Evaluation Nutrition/Malnutrition Findings: Nutrition Notes Start: 06/08/20 13:41 Freq: Status: Active Protocol: Document 06/08/20 13:41 AL (Rec: 06/08/20 13:44 AL [email or web address]) Co-Sign 06/08/20 13:41 MK Nutrition Notes Need for Assessment generated from: Low BMI Initial or Follow up Brief Note Current Diagnosis Diabetes,Hypertension Other Pertinent Diagnosis Pancreatitis, syncope Current Diet No diet Subjective/Other Information Pt in IMCU hold in ED. Unable to visit. Nutrition Intervention Follow-Up By: 06/11/20 Additional Comments F/U for low BMI
[2020-06-09] MEDS: PREGABALIN 75 MG CAP PO SCH ×2 (11:13→21:12)
[2020-06-09] MEDS: SERTRALINE 50 MG TAB PO SCH (11:13)
[2020-06-09] MEDS: FOLIC ACID 1 MG TAB PO SCH (11:13)
--- NOTE | 2020-06-09 11:53 | Progress Note ---
Assessment and Plan 1. Acute kidney injury: Vasomotor nephropathy in the setting of volume depletion, hypotension and NSAIDs. Renal US negative for hydro. Monitor renal function. Creatinine level improving. Avoid nephrotoxic agents. Meds dosage based on GFR. 2. FEN: Acute Hyponatremia, 2/2 volume depletion, continue IV fluids, monitor. Sodium level is better. Monitor lytes. 3. Syncope: Likely from hypotension. 4. Ankle pain, left: X-ray of left ankle negative for any fracture. Pain medications as needed 5. Chronic pancreatitis: Needs to follow-up with High Tension Tester in the office for complete work-up. 6. Diabetes mellitus: Sliding scale insulin. 7. Hypertension: Initial hypotension. Monitor blood pressure closely. Subjective: Patient was seen and examined at the bedside. Doing better. - General Appearance General appearance: well-developed, well-nourished, appears stated age, no distress HEENT: ATNC, SONNY, hearing intact, vision intact Neck: supple Respiratory: ctab Cardiology: regular, S1S2, no murmur Gastrointestinal: normoactive bowel sounds, no tenderness, not distended Integumentary: no obvious rash Neurologic: no asterixis, alert and oriented x3, able to move extremities Ext: no edema noted Psychiatric: cooperative Subjective Date of service: 06/09/20 Objective - Vital Signs Vital signs: Vital Signs - 12hr 06/09/20 06/09/20 06/09/20 00:00 00:11 00:21 Temperature Pulse Rate 70 66 70 Pulse Rate [ 66 From Monitor] Respiratory 12 14 12 Rate Blood Pressure 123/85 123/85 123/85 O2 Sat by Pulse 100 Oximetry 06/09/20 06/09/20 06/09/20 00:31 00:41 00:51 Temperature Pulse Rate 81 68 70 Pulse Rate [ From Monitor] Respiratory 16 12 11 L Rate Blood Pressure 123/85 123/85 123/85 O2 Sat by Pulse Oximetry 06/09/20 06/09/20 06/09/20 01:00 01:11 01:21 Temperature Pulse Rate 69 67 67 Pulse Rate [ From Monitor] Respiratory 10 L 17 16 Rate Blood Pressure 105/66 105/66 105/66 O2 Sat by Pulse Oximetry 06/09/20 06/09/20 06/09/20 01:31 01:41 01:51 Temperature Pulse Rate 72 67 65 Pulse Rate [ From Monitor] Respiratory 16 11 L 11 L Rate Blood Pressure 105/66 105/66 105/66 O2 Sat by Pulse 100 100 Oximetry 06/09/20 06/09/20 06/09/20 02:00 02:11 02:21 Temperature Pulse Rate 66 67 66 Pulse Rate [ From Monitor] Respiratory 11 L 12 11 L Rate Blood Pressure 109/69 109/69 109/69 O2 Sat by Pulse 100 100 100 Oximetry 06/09/20 06/09/20 06/09/20 02:31 02:41 02:51 Temperature Pulse Rate 66 72 64 Pulse Rate [ From Monitor] Respiratory 19 15 17 Rate Blood Pressure 109/69 109/69 109/69 O2 Sat by Pulse 100 100 100 Oximetry 06/09/20 06/09/20 06/09/20 03:00 03:11 03:21 Temperature Pulse Rate 63 63 63 Pulse Rate [ From Monitor] Respiratory 10 L 10 L 17 Rate Blood Pressure 117/75 117/75 117/75 O2 Sat by Pulse 100 100 100 Oximetry 06/09/20 06/09/20 06/09/20 03:29 03:31 03:41 Temperature 98.2 F Pulse Rate 61 62 Pulse Rate [ From Monitor] Respiratory 11 L 13 Rate Blood Pressure 117/75 117/75 O2 Sat by Pulse 100 100 Oximetry 06/09/20 06/09/20 06/09/20 03:51 04:00 04:11 Temperature Pulse Rate 62 60 59 L Pulse Rate [ 59 L From Monitor] Respiratory 10 L 8 L 9 L Rate Blood Pressure 117/75 101/68 101/68 O2 Sat by Pulse 100 100 100 Oximetry 06/09/20 06/09/20 06/09/20 04:21 04:31 04:41 Temperature Pulse Rate 59 L 59 L 61 Pulse Rate [ From Monitor] Respiratory 8 L 8 L 9 L Rate Blood Pressure 101/68 101/68 101/68 O2 Sat by Pulse 100 100 100 Oximetry 06/09/20 06/09/20 06/09/20 04:51 05:01 05:11 Temperature Pulse Rate 58 L 58 L 64 Pulse Rate [ From Monitor] Respiratory 9 L 10 L 15 Rate Blood Pressure 101/68 141/85 141/85 O2 Sat by Pulse 100 100 99 Oximetry 06/09/20 06/09/20 06/09/20 05:21 05:31 05:41 Temperature Pulse Rate 64 61 60 Pulse Rate [ From Monitor] Respiratory 10 L 10 L 9 L Rate Blood Pressure 141/85 141/85 141/85 O2 Sat by Pulse 100 100 100 Oximetry 06/09/20 06/09/20 06/09/20 05:51 06:00 06:11 Temperature Pulse Rate 59 L 60 59 L Pulse Rate [ From Monitor] Respiratory 14 9 L 17 Rate Blood Pressure 141/85 105/73 105/73 O2 Sat by Pulse 100 100 100 Oximetry 06/09/20 06/09/20 06/09/20 06:21 06:31 06:41 Temperature Pulse Rate 58 L 59 L 58 L Pulse Rate [ From Monitor] Respiratory 15 16 10 L Rate Blood Pressure 105/73 105/73 105/73 O2 Sat by Pulse 100 100 100 Oximetry 06/09/20 06/09/20 06/09/20 06:51 07:00 07:11 Temperature Pulse Rate 58 L 58 L 58 L Pulse Rate [ From Monitor] Respiratory 15 11 L 9 L Rate Blood Pressure 105/73 99/65 99/65 O2 Sat by Pulse 100 100 100 Oximetry 06/09/20 06/09/20 06/09/20 07:21 07:31 07:41 Temperature Pulse Rate 57 L 58 L 62 Pulse Rate [ From Monitor] Respiratory 12 9 L 14 Rate Blood Pressure 99/65 99/65 99/65 O2 Sat by Pulse 100 100 100 Oximetry 06/09/20 06/09/20 06/09/20 07:51 08:00 08:01 Temperature 97.5 F L Pulse Rate 72 58 L 67 Pulse Rate [ 58 L From Monitor] Respiratory 17 12 13 Rate Blood Pressure 99/65 104/84 O2 Sat by Pulse 91 100 97 Oximetry - Lab 06/09/20 04:57 06/09/20 04:57 Most recent lab results Calcium 9.7 mg/dL (8.4-10.2) 06/09/20 04:57 Phosphorus 3.90 mg/dL (2.5-4.5) 06/08/20 10:07 Magnesium 2.50 mg/dL (1.7-2.3) H 06/08/20 10:07 Urine Creatinine 33.2 mg/dL (0.1-20.0) H 06/08/20 10:11 Urine Sodium 39 mmol/L 06/08/20 10:11 Urine Total Protein 14 mg/dL (5-11.8) H 06/08/20 10:11 Medications & Allergies - Medications Allergies/Adverse Reactions: Allergies No Known Allergies Allergy (Unverified 10/31/15 13:23) Home Medications: Home Medications Medication Instructions Recorded Confirmed Last Taken Type AtorvaSTATin [Lipitor] 20 mg PO QHS 06/08/20 06/08/20 Unknown History Esomeprazole Magnesium [NexIUM] 40 mg PO QDAY 06/08/20 06/08/20 Unknown History Folic Acid [Folvite] 1 mg PO QDAY 06/08/20 06/08/20 Unknown History Furosemide [Lasix TAB] 20 mg PO DAILY 06/08/20 06/08/20 Unknown History Gabapentin 400 mg PO DAILY 06/08/20 06/08/20 Unknown History Ibuprofen [Motrin] 800 mg PO Q8HR PRN 06/08/20 06/08/20 Unknown History Insulin Lispro [Humalog Yeyo 100 unit SQ DAILY 06/08/20 06/08/20 Unknown H istory Kwikpen] Methocarbamol [Robaxin] 750 mg PO DAILY 06/08/20 06/08/20 Unknown History Pregabalin [Lyrica] 150 mg PO DAILY 06/08/20 06/08/20 Unknown History Sertraline [Zoloft] 50 mg PO DAILY 06/08/20 06/08/20 Unknown History Spironolactone [Aldactone] 50 mg PO QDAY 06/08/20 06/08/20 Unknown History traZODone [Desyrel] 50 mg PO QHS 06/08/20 06/08/20 Unknown History Active Medications: Generic Name Dose Route Start Last Admin Trade Name Eduinq PRN Reason Stop Dose Admin Dextrose 50 ml 06/08/20 11:00 06/09/20 07:35 D50w (25gm) Syringe IV 50 ml Q30MIN PRN Administration Hypoglycemia Protocol Folic Acid 1 mg 06/09/20 10:06/09/20 11:13 Folvite PO 1 mg QDAY LUIS Administration Heparin Sodium (Porcine) 5,000 unit 06/08/20 14:00 06/09/20 06:01 Heparin SUB-Q 5,000 unit Q8HR LUIS Administration Hydromorphone HCl 1 mg 06/08/20 21:00 Dilaudid IV Q4H PRN Pain , Severe (7-10) Insulin Glargine 10 units 06/08/20 22:00 06/08/20 22:45 Lantus SUB-Q 10 units QHS LUIS Administration Insulin Human Lispro 0 unit 06/08/20 11:30 06/09/20 08:27 Humalog SUB-Q Not Given ACHS LUIS Protocol Pregabalin 150 mg 06/08/20 22:00 06/09/20 11:13 Pregabalin PO 150 mg BID LUIS Administration Sertraline HCl 50 mg 06/09/20 10:00 06/09/20 11:13 Zoloft PO 50 mg DAILY LUIS Administration Sodium Chloride 10 ml 06/08/20 22:00 06/09/20 11:13 Sodium Chloride Flush Syringe 10 Ml IV 10 ml BID LUIS Administration Sodium Chloride 10 ml 06/08/20 10:09 Sodium Chloride Flush Syringe 10 Ml IV PRN PRN LINE FLUSH
[2020-06-09] MEDS: SODIUM BICARBONATE 650 MG TAB PO SCH ×2 (14:42→21:20)
[2020-06-09] MEDS ORDERED: INSULIN GLARGINE 100 UNITS/ML SUB-Q SCH (20:38)
[2020-06-10 02:00] LABS: BUN/Creatinine Ratio 21; Blood Urea Nitrogen 21 mg/dL (7-17); Calcium 9.7 mg/dL (8.4-10.2); Hemolysis Index 19
[2020-06-10] MEDS: HYDROmorphone 1 MG/1 ML INJ IV PRN ×2 (02:02→09:12)
[2020-06-10] MEDS: ONDANSETRON 4 MG/2 ML INJ IV PRN ×2 (02:02→09:12)
[2020-06-10 04:33] VITALS: BP 110/70
[2020-06-10] MEDS: HEPARIN 5,000 UNIT/1 ML VIAL SUB-Q SCH ×2 (05:56→14:25)
[2020-06-10] MEDS: INSULIN LISPRO 100 UNIT/ML VIAL 3 mL SUB-Q SCH ×2 (08:06→14:19)
[2020-06-10] MEDS: SODIUM BICARBONATE 650 MG TAB PO SCH ×2 (08:37→14:18)
[2020-06-10] MEDS: FOLIC ACID 1 MG TAB PO SCH (09:04)
[2020-06-10] MEDS: SERTRALINE 50 MG TAB PO SCH (09:04)
[2020-06-10] MEDS: PREGABALIN 75 MG CAP PO SCH (09:04)
[2020-06-10] MEDS ORDERED: METOCLOPRAMIDE 10 MG/2 ML INJ IV PRN (09:55)
--- NOTE | 2020-06-10 10:11 | Discharge Summary ---
Providers - Providers Date of Admission: 06/08/20 10:20 Date of discharge: 06/10/20 Attending physician: HALLIE SNIDER 06/08/20 05:18 Consult to Physician [CONS] Routine Comment: Consulting Provider: RAIZA JUAREZ Physician Instructions: Reason For Exam: renal failure, low na [facility] Condition: Critical Hospital course: 55-year-old female with a medical history of HTN, DM, GERD, depression, chronic pancreatitis and medication Noncompliance who presents to the emergency room with chief complaints of generalized weakness. Patient states that she has been having generalized weakness for about a week prior to presentation. She also notes that she may have lost some weight in the past 1 month. She denies any change in her diet but states that each time she eats, she has a bowel movement immediately afterwards. She mentions that she has had colonoscopy in the past but is unsure about the timing. History during my encounter was limited as patient was very lethargic. On the day of presentation, patient reportedly got up and then passed out. She twisted her ankle in the process. She denies any trauma to her head. She said that she called the ambulance due to severe ankle pain as it was worse with movement. She says she may have lost consciousness but she is unsure. Patient denies chest pain or shortness of breath. Patient denies abdominal pain. Patient denies headache. Patient denies fever and chills. Patient denies recent travel. Patient denies recent international travel. Patient denies exposure to the novel coronavirus. Patient denies sick contacts. Patient denies fever and chills. Patient denies cough. In emergency room, patient was noted to have sodium of 119 so she was then admitted to the hospital. X-ray of the left ankle is negative for any fracture. Patient was admitted to the [facility] for hyponatremia. Nephrology was consulted. Etiology of hyponatremia likely from dehydration as patient was on Lasix and Aldactone at home. She was started on normal saline and sodium subsequently improved. She has chronic pancreatitis and she complains of abdominal pain. She will need to follow-up with GI in the office. She has been on Creon in the past for this. Her sodium has significantly improved to 132-133 for 24 hours. Patient is no longer weak and I feel patient is stable to be discharged to follow-up with her primary medical doctor to have repeat labs done in a week. She will also follow-up with GI in the office for routine colonoscopy and management of chronic pancreatitis - Discharge Diagnoses (1) Hyponatremia Status: Acute (2) Syncope Status: Acute Qualifiers: Syncope type: unspecified Qualified Code(s): R55 - Syncope and collapse (3) Ankle pain, left Status: Acute Qualifiers: Chronicity: acute Qualified Code(s): M25.572 - Pain in left ankle and joints of left foot (4) Chronic pancreatitis Status: Acute (5) Diabetes mellitus Status: Acute (6) Hypertension Status: Acute (7) GERD (gastroesophageal reflux disease) Status: Acute (8) DVT prophylaxis Status: Acute Core Measure Documentation - Palliative Care Palliative Care/ Comfort Measures: Not Applicable - Core Measures Any of the following diagnoses?: none Exam - Constitutional Vitals: Temp Pulse Resp BP Pulse Ox 98.3 F 65 18 110/70 99 06/10/20 04:28 06/10/20 04:28 06/10/20 04:28 06/10/20 04:28 06/10/20 04:28 Plan Activity: no restrictions Diet: regular Additional Instructions: Follow-up with gastroenterology in the office for colonoscopy and management of chronic pancreatitis. Start creon with meals. Use your Lasix and aldactone only as needed for now. Follow up with your primary medical doctor in 1 week. Continue usual home medications Follow up with: NANNETTE ANTONIOCHILO MD O[facility] [Primary Care Provider] - 3-5 Days KEM REAGAN MD [Staff Physician] - 7 Days Prescriptions: Lipase/Protease/Amylase [Tony Lloyd 24,000 Units Capsule] 1 each PO TID #90 capsule.
[2020-06-10 10:27] LABS: Alanine Aminotransferase 73 units/L (7-56); Albumin 3.1 g/dL (3.9-5); BUN/Creatinine Ratio 19; Blood Urea Nitrogen 19 mg/dL (7-17); Calcium 9.7 mg/dL (8.4-10.2); Hemolysis Index 38
--- NOTE | 2020-06-10 11:19 | Progress Note ---
Assessment and Plan 1. Acute kidney injury: Vasomotor nephropathy in the setting of volume depletion, hypotension and NSAIDs. Renal US negative for hydro. Monitor renal function. Creatinine level is better. Avoid nephrotoxic agents. Meds dosage based on GFR. 2. FEN: Acute Hyponatremia, 2/2 volume depletion, improved, monitor. Monitor lytes. 3. Syncope: Likely from hypotension. 4. Ankle pain, left: X-ray of left ankle negative for any fracture. Pain medications as needed 5. Chronic pancreatitis: Needs to follow-up with Communications Technologist in the office for complete work-up. 6. Diabetes mellitus: Sliding scale insulin. 7. Hypertension: Initial hypotension. Monitor blood pressure closely. F/u with me in 1-2 weeks. Subjective: Patient was seen and examined at the bedside. Doing better. - General Appearance General appearance: well-developed, well-nourished, appears stated age, no distress HEENT: ATNC, SONNY, hearing intact, vision intact Neck: supple Respiratory: ctab Cardiology: regular, S1S2, no murmur Gastrointestinal: normoactive bowel sounds, no tenderness, not distended Integumentary: no obvious rash Neurologic: no asterixis, alert and oriented x3, able to move extremities Ext: no edema noted Psychiatric: cooperative Subjective Date of service: 06/10/20 Objective - Vital Signs Vital signs: Vital Signs - 12hr 06/10/20 04:28 Temperature 98.3 F Pulse Rate 65 Respiratory 18 Rate Blood Pressure 110/70 O2 Sat by Pulse 99 Oximetry - Lab 06/09/20 04:57 06/10/20 08:29 Most recent lab results Calcium 9.7 mg/dL (8.4-10.2) 06/10/20 08:29 Phosphorus 3.90 mg/dL (2.5-4.5) 06/08/20 10:07 Magnesium 2.50 mg/dL (1.7-2.3) H 06/08/20 10:07 Urine Creatinine 33.2 mg/dL (0.1-20.0) H 06/08/20 10:11 Urine Sodium 39 mmol/L 06/08/20 10:11 Urine Total Protein 14 mg/dL (5-11.8) H 06/08/20 10:11 Medications & Allergies - Medications Allergies/Adverse Reactions: Allergies No Known Allergies Allergy (Unverified 10/31/15 13:23) Home Medications: Home Medications Medication Instructions Recorded Confirmed Last Taken Type AtorvaSTATin [Lipitor] 20 mg PO QHS 06/08/20 06/08/20 Unknown History Esomeprazole Magnesium [NexIUM] 40 mg PO QDAY 06/08/20 06/08/20 Unknown History Folic Acid [Folvite] 1 mg PO QDAY 06/08/20 06/08/20 Unknown History Gabapentin 400 mg PO DAILY 06/08/20 06/08/20 Unknown History Ibuprofen [Motrin] 800 mg PO Q8HR PRN 06/08/20 06/08/20 Unknown History Insulin Lispro [Humalog Yeyo 100 unit SQ DAILY 06/08/20 06/08/20 Unknown History Kwikpen] Methocarbamol [Robaxin] 750 mg PO DAILY 06/08/20 06/08/20 Unknown History Pregabalin [Lyrica] 150 mg PO DAILY 06/08/20 06/08/20 Unknown History Sertraline [Zoloft] 50 mg PO DAILY 06/08/20 06/08/20 Unknown History Spironolactone [Aldactone] 50 mg PO QDAY 06/08/20 06/08/20 Unknown History traZODone [Desyrel] 50 mg PO QHS 06/08/20 06/08/20 Unknown History Lipase/Protease/Amylase [Tony Lloyd 1 each PO TID #90 capsule. 06/10/20 Unknown Rx 24,000 Units Capsule] Active Medications: Generic Name Dose Route Start Last Admin Trade Name Freq PRN Reason Stop Dose Admin Dextrose 50 ml 06/08/20 11:00 06/09/20 07:35 D50w (25gm) Syringe IV 50 ml Q30MIN PRN Administration Hypoglycemia Protocol Folic Acid 1 mg 06/09/20 10:00 06/10/20 09:04 Folvite PO 1 mg QDAY LUIS Administration Heparin Sodium (Porcine) 5,000 unit 06/08/20 14:00 06/10/20 05:56 Heparin SUB-Q 5,000 unit Q8HR LUIS Administration Hydromorphone HCl 1 mg 06/08/20 21:00 06/10/20 09:12 Dilaudid IV 1 mg Q4H PRN Administration Pain , Severe (7-10) Insulin Glargine 6 units 06/09/20 20:38 06/09/20 21:48 Lantus SUB-Q Not Given QHS [facility] Insulin Human Lispro 0 unit 06/08/20 11:30 06/10/20 08:06 Humalog SUB-Q Not Given ACHS [facility] Protocol Metoclopramide HCl 10 mg 06/10/20 09:55 Reglan IV Q6H PRN Nausea And Vomiting Ondansetron HCl 4 mg 06/10/20 01:55 06/10/20 09:12 Zofran IV 4 mg Q4H PRN Administration Nausea And Vomiting Pregabalin 150 mg 06/08/20 22:00 06/10/20 09:04 Pregabalin PO 150 mg BID LUIS Administration Sertraline HCl 50 mg 06/09/20 10:00 06/10/20 09:04 Zoloft PO 50 mg DAILY LUIS Administration Sodium Bicarbonate 1,300 mg 06/09/20 14:00 06/10/20 08:37 Sodium Bicarbonate PO Not Given TID LUIS Sodium Chloride 10 ml 06/08/20 22:00 06/10/20 09:05 Sodium Chloride Flush Syringe 10 Ml IV 10 ml BID LUIS Administration Sodium Chloride 10 ml 06/08/20 10:09 Sodium Chloride Flush Syringe 10 Ml IV PRN PRN LINE FLUSH
[2020-06-14 13:45] LABS: Vitamin D, 25-OH, D2 <4 ng/mL
== END 2020-06-10 16:00 | disposition home or self-care (01) | DRG 640 ==
LOC: ED 00:09 → IMCU 05:23 → OBSVTOIN 10:20 → IMCU 12:10 → 3A 06-09 09:47
PROVIDERS: ADMIT Internal Medicine Geriatric Medicine; ATTEND Internal Medicine
DX: E87.1 Hypo-osmolality and hyponatremia (principal); N17.0 Acute kidney failure with tubular necrosis; K86.1 Other chronic pancreatitis; I95.9 Hypotension, unspecified; E78.00 Pure hypercholesterolemia, unspecified; D64.9 Anemia, unspecified; E11.65 Type 2 diabetes mellitus with hyperglycemia; M25.572 Pain in left ankle and joints of left foot; I10 Essential (primary) hypertension; K21.9 Gastro-esophageal reflux disease without esophagitis; F32.9 Major depressive disorder, single episode, unspecified; Z98.51 Tubal ligation status; Z79.899 Other long term (current) drug therapy; Z79.84 Long term (current) use of oral hypoglycemic drugs
CPT/HCPCS: 36415; 70450; 71045; 76770; 80048; 80051; 80053; 81001; 82306; 82533; 82550; 82553; 82570; 82607; 82747; 82962; 83036; 83690; 83735; 83930; 83935; 83970; 84100; 84156; 84300; 84443; 84484; 84550; 85025; 85379; 89050; 93005; 93306; 93880; 96374; 96375; G0378; J1170; J1644; J1815; J2405; J7030

== ENCOUNTER 2020-06-26 11:32 | Emergency (ER) | payer OTHER ==
[2020-06-26] MEDS ORDERED: PREGABALIN 75 MG CAP PO ONE (13:11)
[2020-06-26] MEDS ORDERED: diphenhydrAMINE 50 MG/ML VIAL IV ONE (13:11)
[2020-06-26] MEDS ORDERED: SODIUM CHLORIDE 0.9% 1000 ML 1,000 ML IV ONE ×3 (13:11→16:14)
--- NOTE | 2020-06-26 14:17 | Emergency Department Report ---
ED Shortness of Breath HPI - General Chief Complaint: Dyspnea/Respdistress Stated Complaint: POSSIABLE STEMI Time Seen by Provider: 06/26/20 12:52 Source: patient, EMS Mode of arrival: Stretcher Limitations: No Limitations - History of Present Illness Initial Comments: 55-year-old female the past medical history of diabetes, diabetic neuropathy, hypertension, chronic pancreatitis, pulmonary embolism on anticoagulation in the past, and elevated cholesterol recent admission to the hospital for symptomatic hyponatremia presents to the hospital complaining of shortness of breath since this a.m. and ongoing diarrhea for the last several months. Patient states she felt shortness of breath and some discomfort while breathing. Patient is also tearful and states that her sister 3 days ago. 4 days ago patient received laboratory work-up in preparation for tooth extraction surgery to be performed at [place]. Yesterday he declined to do the surgery because her potassium was "high" and some other electrolyte was abnormal. She does report that they also performed a Covid test this past Thursday which was negative. Patient has ongoing diarrhea for several months which improved with antidiarrhea pills. No complaints of abdominal pain, melena, hematochezia, cough, or fever. As per triage note EMS reported patient was diaphoretic upon their arrival with a heart rate of 57 and BP is 70/40 with a normal blood glucose. Patient satting 100% on room aiir upon arrival with normal BP. As per medical record review patient was recently admitted here June 08 for hyponatremia with a sodium of 115. Outpatient follow-up with GI recommended for work-up of ongoing diarrhea. Patient has been unable to follow-up since discharge. Complains of 2/10 pain to her lower extremities secondary to chronic diabetic neuropathy - Related Data Home Medications Medication Instructions Recorded Confirmed Last Taken AtorvaSTATin [Lipitor] 20 mg PO QHS 06/08/20 06/08/20 Unknown Esomeprazole Magnesium [NexIUM] 40 mg PO QDAY 06/08/20 06/08/20 Unknown Folic Acid [Folvite] 1 mg PO QDAY 06/08/20 06/08/20 Unknown Gabapentin 400 mg PO DAILY 06/08/20 06/08/20 Unknown Ibuprofen [Motrin] 800 mg PO Q8HR PRN 06/08/20 06/08/20 Unknown Insulin Lispro [Humalog Yeyo 100 unit SQ DAILY 06/08/20 06/08/20 Unknown Kwikpen] Methocarbamol [Robaxin] 750 mg PO DAILY 06/08/20 06/08/20 Unknown Pregabalin [Lyrica] 150 mg PO DAILY 06/08/20 06/08/20 Unknown Sertraline [Zoloft] 50 mg PO DAILY 06/08/20 06/08/20 Unknown Spironolactone [Aldactone] 50 mg PO QDAY 06/08/20 06/08/20 Unknown traZODone [Desyrel] 50 mg PO QHS 06/08/20 06/08/20 Unknown Previous Rx's Medication Instructions Recorded Last Taken Type Lipase/Protease/Amylase [Tony Lloyd 1 each PO TID #90 capsule. 06/10/20 Unknown Rx 24,000 Units Capsule] Allergies Allergy/AdvReac Type Severity Reaction Status Date / Time No Known Allergies Allergy Unverified 10/31/15 13:23 ED Review of Systems ROS: Stated complaint: POSSIABLE STEMI Other details as noted in HPI Comment: All other systems reviewed and negative ED Past Medical Hx - Past Medical History Previous Medical History?: Yes Hx Hypertension: Yes Hx Diabetes: Yes Hx Renal Disease: No Additional medical history: High Cholesterol. Pancreatitis - Surgical History Past Surgical History?: Yes Additional Surgical History: Tubal ligation - Social History Smoking Status: Never Smoker Substance Use Type: None - Medications Home Medications: Home Medications Medication Instructions Recorded Confirmed Last Taken Type AtorvaSTATin [Lipitor] 20 mg PO QHS 06/08/20 06/08/20 Unknown History Esomeprazole Magnesium [NexIUM] 40 mg PO QDAY 06/08/20 06/08/20 Unknown History Folic Acid [Folvite] 1 mg PO QDAY 06/08/20 06/08/20 Unknown History Gabapentin 400 mg PO DAILY 06/08/20 06/08/20 Unknown History Ibuprofen [Motrin] 800 mg PO Q8HR PRN 06/08/20 06/08/20 Unknown History Insulin Lispro [Humalog Yeyo 100 unit SQ DAILY 06/08/20 06/08/20 Unknown History Kwikpen] Methocarbamol [Robaxin] 750 mg PO DAILY 06/08/20 06/08/20 Unknown History Pregabalin [Lyrica] 150 mg PO DAILY 06/08/20 06/08/20 Unknown History Sertraline [Zoloft] 50 mg PO DAILY 06/08/20 06/08/20 Unknown History Spironolactone [Aldactone] 50 mg PO QDAY 06/08/20 06/08/20 Unknown History traZODone [Desyrel] 50 mg PO QHS 06/08/20 06/08/20 Unknown History Lipase/Protease/Amylase [Tony Lloyd 1 each PO TID #90 capsule. 06/10/20 Unknown Rx 24,000 Units Capsule] ED Physical Exam - General Limitations: No Limitations - Other Other exam information: General: No acute distress Head: Atraumatic Eyes: normal appearance ENT: Moist mucous membranes Neck: Normal appearance, no midline tenderness Chest: Clear to auscultation bilaterally CV: Regular rate and rhythm Abdomen: Soft, normal bowel sounds, nontender, nondistended, no rebound or guarding Back: Normal inspection Extremity: Normal inspection, full range of motion Neuro: Alert O x 3, no facial asymmetry, speech clear, no gross motor sensory deficit Psych: Appropriate behavior Skin: No rash ED Course Vital Signs 06/26/20 06/26/20 06/26/20 12:19 12:29 12:31 Temperature 97.5 F L Pulse Rate 60 66 Respiratory 13 14 Rate Blood Pressure 119/75 Blood Pressure 119/75 [Right] O2 Sat by Pulse 100 100 100 Oximetry 06/26/20 06/26/20 06/26/20 12:45 13:00 13:15 Temperature Pulse Rate 61 68 66 Respiratory 14 16 15 Rate Blood Pressure 119/75 140/85 140/85 Blood Pressure [Right] O2 Sat by Pulse 100 100 91 Oximetry 06/26/20 06/26/20 06/26/20 13:31 13:45 14:00 Temperature Pulse Rate 62 60 64 Respiratory 12 14 11 L Rate Blood Pressure 140/85 140/85 140/87 Blood Pressure [Right] O2 Sat by Pulse 100 100 100 Oximetry 06/26/20 06/26/20 06/26/20 14:15 14:31 14:45 Temperature Pulse Rate Respiratory Rate Blood Pressure 140/87 140/87 140/87 Blood Pressure [Right] O2 Sat by Pulse 100 100 100 Oximetry 06/26/20 06/26/20 06/26/20 15:00 15:15 15:31 Temperature Pulse Rate Respiratory Rate Blood Pressure 147/81 147/81 147/81 Blood Pressure [Right] O2 Sat by Pulse 99 100 100 Oximetry 06/26/20 06/26/20 06/26/20 16:17 16:31 16:45 Temperature Pulse Rate Respiratory Rate Blood Pressure 147/81 147/81 147/81 Blood Pressure [Right] O2 Sat by Pulse 98 97 99 Oximetry 06/26/20 06/26/20 06/26/20 17:00 17:15 17:31 Temperature Pulse Rate Respiratory Rate Blood Pressure 137/79 137/79 137/79 Blood Pressure [Right] O2 Sat by Pulse 100 100 94 Oximetry - Reevaluation(s) Reevaluation #1: 06/26/20 15:02 /Suggestive of dehydration as a cause of mild renal insufficiency. IV fluids in progress - Consultations Consultation #1: 06/26/20 15:[address] Juarez superannuation clerk. Recommends outpatient follow-up after hydration ED Medical Decision Making - Lab Data Result diagrams: 06/26/20 13:49 06/26/20 13:49 Lab Results 06/26/20 06/26/20 06/26/20 Range/Units 13:13 13:49 13:49 WBC 5.3 (4.5-11.0) K/mm3 RBC 3.93 (3.65-5.03) M/mm3 Hgb 10.0 L (10.1-14.3) gm/dl Hct 29.2 L (30.3-42.9) % MCV 74 L (79-97) fl MCH 26 L (28-32) pg MCHC 34 (30-34) % RDW 16.2 H (13.2-15.2) % Plt Count 336 (140-440) K/mm3 Add Manual Diff Complete Total Counted 100 Seg Neuts % (Manual) 91.0 H (40.0-70.0) % Band Neutrophils % 0 % Lymphocytes % (Manual) 6.0 L (13.4-35.0) % Reactive Lymphs % (Man) 0 % Monocytes % (Manual) 3.0 (0.0-7.3) % Eosinophils % (Manual) 0 (0.0-4.3) % Basophils % (Manual) 0 (0.0-1.8) % Metamyelocytes % 0 % Myelocytes % 0 % Promyelocytes % 0 % Blast Cells % 0 % Nucleated RBC % Not Reportable Seg Neutrophils # Man 4.8 (1.8-7.7) K/mm3 Band Neutrophils # 0.0 K/mm3 Lymphocytes # (Manual) 0.3 L (1.2-5.4) K/mm3 Abs React Lymphs (Man) 0.0 K/mm3 Monocytes # (Manual) 0.2 (0.0-0.8) K/mm3 Eosinophils # (Manual) 0.0 (0.0-0.4) K/mm3 Basophils # (Manual) 0.0 (0.0-0.1) K/mm3 Metamyelocytes # 0.0 K/mm3 Myelocytes # 0.0 K/mm3 Promyelocytes # 0.0 K/mm3 Blast Cells # 0.0 K/mm3 WBC Morphology Not Reportable Hypersegmented Neuts Not Reportable Hyposegmented Neuts Not Reportable Hypogranular Neuts Not Reportable Smudge Cells Not Reportable Toxic Granulation Not Reportable Toxic Vacuolation Not Reportable Dohle Bodies Not Reportable Pelger-Huet Anomaly Not Reportable Miller Rods Not Reportable Platelet Estimate Consistent w auto Clumped Platelets Not Reportable Plt Clumps, EDTA Not Reportable Large Platelets Not Reportable Giant Platelets Not Reportable Platelet Satelliting Not Reportable Plt Morphology Comment Not Reportable RBC Morphology Not Reportable Dimorphic RBCs Not Reportable Polychromasia Not Reportable Hypochromasia 1+ Poikilocytosis Not Reportable Anisocytosis Not Reportable Microcytosis Not Reportable Macrocytosis Not Reportable Spherocytes Not Reportable Pappenheimer Bodies Not Reportable Sickle Cells Not Reportable Target Cells 2+ Tear Drop Cells Not Reportable Ovalocytes Not Reportable Helmet Cells Not Reportable Valerio-Force Bodies Not Reportable [place] Rings Not Reportable [place] Cells Not Reportable Bite Cells Not Reportable Crenated Cell Not Reportable Elliptocytes Not Reportable Acanthocytes (Spur) Not Reportable Rouleaux Not Reportable Hemoglobin C Crystals Not Reportable Schistocytes Not Reportable Malaria parasites Not Reportable Derrick Bodies Not Reportable Hem Pathologist Commnt No D-Dimer < 135 (0-234) ng/mlDDU Sodium (137-145) mmol/L Potassium (3.6-5.0) mmol/L Chloride (98-107) mmol/L Carbon Dioxide (22-30) mmol/L Anion Gap mmol/L BUN (7-17) mg/dL Creatinine (0.6-1.2) mg/dL Estimated GFR ml/min BUN/Creatinine Ratio % Glucose (65-100) mg/dL POC Glucose 79 (70-105) mg/dL Calcium (8.4-10.2) mg/dL Magnesium (1.7-2.3) mg/dL Total Bilirubin (0.1-1.2) mg/dL AST (5-40) units/L ALT (7-56) units/L Alkaline Phosphatase (35-129) units/L Troponin T (0.00-0.029) ng/mL Total Protein (6.3-8.2) g/dL Albumin (3.9-5) g/dL Albumin/Globulin Ratio % 06/26/20 06/26/20 Range/Units 13:49 13:49 WBC (4.5-11.0) K/mm3 RBC (3.65-5.03) M/mm3 Hgb (10.1-14.3) gm/dl Hct (30.3-42.9) % MCV (79-97) fl MCH (28-32) pg MCHC (30-34) % RDW (13.2-15.2) % Plt Count (140-440) K/mm3 Add Manual Diff Total Counted Seg Neuts % (Manual) (40.0-70.0) % Band Neutrophils % % Lymphocytes % (Manual) (13.4-35.0) % Reactive Lymphs % (Man) % Monocytes % (Manual) (0.0-7.3) % Eosinophils % (Manual) (0.0-4.3) % Basophils % (Manual) (0.0-1.8) % Metamyelocytes % % Myelocytes % % Promyelocytes % % Blast Cells % % Nucleated RBC % Seg Neutrophils # Man (1.8-7.7) K/mm3 Band Neutrophils # K/mm3 Lymphocytes # (Manual) (1.2-5.4) K/mm3 Abs React Lymphs (Man) K/mm3 Monocytes # (Manual) (0.0-0.8) K/mm3 Eosinophils # (Manual) (0.0-0.4) K/mm3 Basophils # (Manual) (0.0-0.1) K/mm3 Metamyelocytes # K/mm3 Myelocytes # K/mm3 Promyelocytes # K/mm3 Blast Cells # K/mm3 WBC Morphology Hypersegmented Neuts Hyposegmented Neuts Hypogranular Neuts Smudge Cells Toxic Granulation Toxic Vacuolation Dohle Bodies Pelger-Huet Anomaly Miller Rods Platelet Estimate Clumped Platelets Plt Clumps, EDTA Large Platelets Giant Platelets Platelet Satelliting Plt Morphology Comment RBC Morphology Dimorphic RBCs Polychromasia Hypochromasia Poikilocytosis Anisocytosis Microcytosis Macrocytosis Spherocytes Pappenheimer Bodies Sickle Cells Target Cells Tear Drop Cells Ovalocytes Helmet Cells Valerio-Force Bodies [place] Rings [place] Cells Bite Cells Crenated Cell Elliptocytes Acanthocytes (Spur) Rouleaux Hemoglobin C Crystals Schistocytes Malaria parasites Derrick Bodies Hem Pathologist Commnt D-Dimer (0-234) ng/mlDDU Sodium 133 L (137-145) mmol/L Potassium 4.5 (3.6-5.0) mmol/L Chloride 100.6 (98-107) mmol/L Carbon Dioxide 22 (22-30) mmol/L Anion Gap 15 mmol/L BUN 40 H (7-17) mg/dL Creatinine 1.6 H (0.6-1.2) mg/dL Estimated GFR 40 ml/min BUN/Creatinine Ratio 25 % Glucose 67 (65-100) mg/dL POC Glucose (70-105) mg/dL Calcium 9.2 (8.4-10.2) mg/dL Magnesium 1.70 (1.7-2.3) mg/dL Total Bilirubin 0.50 (0.1-1.2) mg/dL AST 28 (5-40) units/L ALT 71 H (7-56) units/L Alkaline Phosphatase 208 H (35-129) units/L Troponin T < 0.010 (0.00-0.029) ng/mL Total Protein 6.8 (6.3-8.2) g/dL Albumin 3.4 L (3.9-5) g/dL Albumin/Globulin Ratio 1.0 % - EKG Data -: EKG Interpreted by Me EKG shows normal: sinus rhythm, ST-T waves (no stemi) Rate: normal - Medical Decision Making Patient initially came to the hospital complaining of shortness of breath since this morning a depressed affect. She was treated in the ED with IV Benadryl to help relax her and 2 L of normal saline for dehydration as identified by labs. Patient also was fed a meal. At the end of ED treatment patient reports feeling "much better". Case was discussed with superannuation clerk who recommended outpatient follow-up after IV hydration for very mild prerenal renal insufficiency. Patient encouraged to increase fluid intake and to include hydration with fluids and and contain electrolytes as opposed to just water. Follow-up nephrology and GI will be encouraged. Patient will be prescribed for anxiety as needed due to grief reaction secondary to her sister's . Patient does complain of shortness of breath prior to arrival with no signs of dyspnea, hypoxia, checks x-ray abnormality, EKG abnormality, chest x-ray abnormality identified. Patient did not complain of further shortness of breath during ED stay. Very mild hyponatremia noted however improved compared to previous admission and patient did receive 2 L of NS Critical Care Time: No Critical care attestation.: If time is entered above; I have spent that time in minutes in the direct care of this critically ill patient, excluding procedure time. ED Disposition Clinical Impression: Dehydration, Mild renal insufficiency, Grief reaction Disposition: DC-01 TO HOME OR SELFCARE Is pt being admited?: No Does the pt Need Aspirin: No Condition: Stable Instructions: Rehydration, Adult, Managing Loss, Adult Additional Instructions: Take the medication as prescribed. Follow-up with your doctor or doctor/clinic provided. It is important that you follow-up with a GI doctor for further work- up of your ongoing diarrhea as well as a kidney doctor to monitor your kidney function. Return if symptoms worsen as indicated by your discharge instructions. Referrals: TOMMY CHUNG MD [Primary Care Provider] - 3-5 Days RAIZA JUAREZ MD [Staff Physician] - 3-5 Days (Kidney specialist) [facility] [Provider Group] - 3-5 Days (GI doctor) Time of Disposition: 17:47
[2020-06-26 14:34] LABS: Hematocrit 29.2 % (30.3-42.9); Mean Corpuscular HGB Conc 34 % (30-34); Mean Corpuscular Volume 74 fl (79-97); Red Blood Count 3.93 M/mm3 (3.65-5.03); Red Cell Distribution Width 16.2 % (13.2-15.2)
[2020-06-26 14:35] LABS: Platelet Count 336 K/mm3 (140-440)
[2020-06-26 14:45] LABS: Albumin 3.4 g/dL (3.9-5); Calcium 9.2 mg/dL (8.4-10.2)
--- NOTE | 2020-06-26 14:55 | XRay Report ---
CHEST 1 VIEW INDICATION: sob COMPARISON: 06/08/2027 4 FINDINGS: SUPPORT DEVICES: None. HEART / MEDIASTINUM: No significant abnormality. LUNGS / PLEURA: No significant pulmonary or pleural abnormality. No pneumothorax. ADDITIONAL FINDINGS: IMPRESSION: 1. No acute cardiopulmonary disease Signer Name: Lele Houston MD Signed: 06/26/2020 2:50 PM Workstation Name: [id number]
[2020-06-26 15:15] LABS: Basophils % (Manual) 0 % (0.0-1.8); Eosinophils % (Manual) 0 % (0.0-4.3); Hypochromasia 1+; Target Cells 2+; Total Cells Counted 100
[2020-06-26 15:16] LABS: Platelet Estimate Consistent w Auto
[2020-06-26 17:36] VITALS: BP 137/79
== END 2020-06-26 18:13 | disposition home or self-care (01) ==
LOC: ED 11:32
DX: E86.0 Dehydration (principal); N28.9 Disorder of kidney and ureter, unspecified; F43.20 Adjustment disorder, unspecified; I10 Essential (primary) hypertension; E11.9 Type 2 diabetes mellitus without complications; Z98.51 Tubal ligation status; Z79.4 Long term (current) use of insulin; Z79.899 Other long term (current) drug therapy
CPT/HCPCS: 36415; 71045; 80053; 82962; 83735; 84484; 85007; 85025; 85379; 93005; 96361; 96374; 99284; J1200; J7030

== ENCOUNTER 2020-11-24 10:05 | Emergency (ER) | payer OTHER ==
[2020-11-24] MEDS ORDERED: ONDANSETRON 4 MG/2 ML INJ IV ONE (10:52)
--- NOTE | 2020-11-24 10:57 | Emergency Department Report ---
HPI - General Chief Complaint: Nausea/Vomiting/Diarrhea Time Seen by Provider: 11/24/20 10:34 - HPI HPI: This is a 55-year-old female presents to the emergency department via EMS from home with complaint of body aches, leg cramping, nausea vomiting, and shortness of breath, that has been going on for the past 2 to 3 days. She says that she took some Tylenol for her leg cramps without much relief. She has a past medical history of diabetes, hypertension, high cholesterol and previous pancreatitis. No recent travel or sick contacts at home. She denies any fever, cough, chest pain, lower extremity swelling. She follows with multiple different primary care providers at [place]. ED Past Medical Hx - Past Medical History Previous Medical History?: Yes Hx Hypertension: Yes Hx Diabetes: Yes Hx Renal Disease: No Additional medical history: High Cholesterol. Pancreatitis - Surgical History Additional Surgical History: Tubal ligation - Social History Smoking Status: Never Smoker Substance Use Type: Alcohol - Medications Home Medications: Home Medications Medication Instructions Recorded Confirmed Last Taken Type AtorvaSTATin [Lipitor] 20 mg PO QHS 06/08/20 06/08/20 Unknown History Esomeprazole Magnesium [NexIUM] 40 mg PO QDAY 06/08/20 06/08/20 Unknown History Folic Acid [Folvite] 1 mg PO QDAY 06/08/20 06/08/20 Unknown History Gabapentin 400 mg PO DAILY 06/08/20 06/08/20 Unknown History Ibuprofen [Motrin] 800 mg PO Q8HR PRN 06/08/20 06/08/20 Unknown History Insulin Lispro [Humalog Yeyo 100 unit SQ DAILY 06/08/20 06/08/20 Unknown History Kwikpen] Methocarbamol [Robaxin] 750 mg PO DAILY 06/08/20 06/08/20 Unknown History Sertraline [Zoloft] 50 mg PO DAILY 06/08/20 06/08/20 Unknown History Spironolactone [Aldactone] 50 mg PO QDAY 06/08/20 06/08/20 Unknown History traZODone [Desyrel] 50 mg PO QHS 06/08/20 06/08/20 Unknown History Lipase/Protease/Amylase [Tony Lloyd 1 each PO TID #90 capsule. 06/10/20 Unknown Rx 24,000 Units Capsule] hydrOXYzine PAMOATE [Vistaril] 50 mg PO Q6HR PRN #20 capsule 06/26/20 Unknown Rx Pregabalin [Lyrica] 150 mg PO DAILY PRN #15 cap 11/24/20 Unknown Rx ED Review of Systems ROS: Stated complaint: LETHARGIC, LEG CRAMPS Other details as noted in HPI Comment: All other systems reviewed and negative Constitutional: denies: chills, fever Eyes: denies: eye pain, vision change ENT: denies: ear pain, throat pain Respiratory: shortness of breath. denies: cough Cardiovascular: denies: chest pain, palpitations Gastrointestinal: nausea, vomiting. denies: abdominal pain Genitourinary: denies: dysuria, discharge Musculoskeletal: myalgia. denies: joint swelling Skin: denies: rash, lesions Neurological: denies: headache, numbness Physical Exam - Physical Exam Vital Signs: Vital Signs 11/24/20 11/24/20 10:21 10:26 Temperature 97.6 F Pulse Rate 74 Respiratory 20 Rate Blood Pressure 100/62 O2 Sat by Pulse 99 100 Oximetry Physical Exam: GENERAL: The patient is well-developed well-nourished. HENT: Normocephalic. Atraumatic. Patient has moist mucous membranes. EYES: Extraocular motions are intact. NECK: Supple. Trachea is midline. CHEST/LUNGS: Clear to auscultation. There is no respiratory distress noted. HEART/CARDIOVASCULAR: Regular. There is no tachycardia. There is no murmur. ABDOMEN: Abdomen is soft, nontender. Patient has normal bowel sounds. SKIN: Skin is warm and dry. NEURO: The patient is awake, alert, and oriented. The patient is cooperative. The patient has no focal neurologic deficits. Normal speech. Cranial nerves II through XII grossly intact. No facial symmetry. No pronator drift. MUSCULOSKELETAL: There is no tenderness or deformity. There is no limitation range of motion. There is no evidence of acute injury. ED Course Vital Signs 11/24/20 11/24/20 10:21 10:26 Temperature 97.6 F Pulse Rate 74 Respiratory 20 Rate Blood Pressure 100/62 O2 Sat by Pulse 99 100 Oximetry ED Medical Decision Making - Lab Data Result diagrams: 11/24/20 11:06 11/24/20 11:06 Lab Results 04/10/21 04/10/21 04/10/21 Range/Units 11:06 11:06 11:06 WBC 5.0 (4.5-11.0) K/mm3 RBC 3.75 (3.65-5.03) M/mm3 Hgb 10.1 (10.1-14.3) gm/dl Hct 29.0 L (30.3-42.9) % MCV 77 L (79-97) fl MCH 27 L (28-32) pg MCHC 35 H (30-34) % RDW 18.2 H (13.2-15.2) % Plt Count 152 (140-440) K/mm3 Lymph % (Auto) 18.1 (13.4-35.0) % Parmer % (Auto) 9.4 H (0.0-7.3) % Eos % (Auto) 0.9 (0.0-4.3) % Baso % (Auto) 0.7 (0.0-1.8) % Lymph # (Auto) 0.9 L (1.2-5.4) K/mm3 Parmer # (Auto) 0.5 (0.0-0.8) K/mm3 Eos # (Auto) 0.0 (0.0-0.4) K/mm3 Baso # (Auto) 0.0 (0.0-0.1) K/mm3 Seg Neutrophils % 70.9 H (40.0-70.0) % Seg Neutrophils # 3.5 (1.8-7.7) K/mm3 PT (12.2-14.9) Sec. INR (0.87-1.13) Sodium 129 L (137-145) mmol/L Potassium 3.2 L (3.6-5.0) mmol/L Chloride 90.5 L (98-107) mmol/L Carbon Dioxide 23 (22-30) mmol/L Anion Gap 19 mmol/L BUN 21 H (7-17) mg/dL Creatinine 2.2 H (0.6-1.2) mg/dL Estimated GFR 28 ml/min BUN/Creatinine Ratio 10 % Glucose 280 H (65-100) mg/dL Calcium 9.6 (8.4-10.2) mg/dL Magnesium (1.7-2.3) mg/dL Total Bilirubin 1.70 H (0.1-1.2) mg/dL AST 81 H (5-40) units/L ALT 95 H (7-56) units/L Alkaline Phosphatase 235 H (35-129) units/L Total Creatine Kinase 165 H (30-135) units/L Troponin T (0.00-0.029) ng/mL Total Protein 7.4 (6.3-8.2) g/dL Albumin 3.2 L (3.9-5) g/dL Albumin/Globulin Ratio 0.8 % TSH 2.820 (0.270-4.200) mlU/mL Urine Color (Yellow) Urine Turbidity (Clear) Urine pH (5.0-7.0) Ur Specific Jackson (1.003-1.030) Urine Protein (Negative) mg/dL Urine Glucose (UA) (Negative) mg/dL Urine Ketones (Negative) mg/dL Urine Blood (Negative) Urine Nitrite (Negative) Urine Bilirubin (Negative) Urine Urobilinogen (<2.0) mg/dL Ur Leukocyte Esterase (Negative) Urine WBC (Auto) (0.0-6.0) /HPF Urine RBC (Auto) (0.0-6.0) /HPF U Epithel Cells (Auto) (0-13.0) /HPF Urine Bacteria (Auto) (Negative) /HPF Urine Mucus /HPF 11/24/20 11/24/20 11/24/20 Range/Units 11:06 11:06 11:06 WBC (4.5-11.0) K/mm3 RBC (3.65-5.03) M/mm3 Hgb (10.1-14.3) gm/dl Hct (30.3-42.9) % MCV (79-97) fl MCH (28-32) pg MCHC (30-34) % RDW (13.2-15.2) % Plt Count (140-440) K/mm3 Lymph % (Auto) (13.4-35.0) % Parmer % (Auto) (0.0-7.3) % Eos % (Auto) (0.0-4.3) % Baso % (Auto) (0.0-1.8) % Lymph # (Auto) (1.2-5.4) K/mm3 Parmer # (Auto) (0.0-0.8) K/mm3 Eos # (Auto) (0.0-0.4) K/mm3 Baso # (Auto) (0.0-0.1) K/mm3 Seg Neutrophils % (40.0-70.0) % Seg Neutrophils # (1.8-7.7) K/mm3 PT 17.6 H (12.2-14.9) Sec. INR 1.45 H (0.87-1.13) Sodium (137-145) mmol/L Potassium (3.6-5.0) mmol/L Chloride (98-107) mmol/L Carbon Dioxide (22-30) mmol/L Anion Gap mmol/L BUN (7-17) mg/dL Creatinine (0.6-1.2) mg/dL Estimated GFR ml/min BUN/Creatinine Ratio % Glucose (65-100) mg/dL Calcium (8.4-10.2) mg/dL Magnesium 1.40 L (1.7-2.3) mg/dL Total Bilirubin (0.1-1.2) mg/dL AST (5-40) units/L ALT (7-56) units/L Alkaline Phosphatase (35-129) units/L Total Creatine Kinase (30-135) units/L Troponin T < 0.010 (0.00-0.029) ng/mL Total Protein (6.3-8.2) g/dL Albumin (3.9-5) g/dL Albumin/Globulin Ratio % TSH (0.270-4.200) mlU/mL Urine Color (Yellow) Urine Turbidity (Clear) Urine pH (5.0-7.0) Ur Specific Jackson (1.003-1.030) Urine Protein (Negative) mg/dL Urine Glucose (UA) (Negative) mg/dL Urine Ketones (Negative) mg/dL Urine Blood (Negative) Urine Nitrite (Negative) Urine Bilirubin (Negative) Urine Urobilinogen (<2.0) mg/dL Ur Leukocyte Esterase (Negative) Urine WBC (Auto) (0.0-6.0) /HPF Urine RBC (Auto) (0.0-6.0) /HPF U Epithel Cells (Auto) (0-13.0) /HPF Urine Bacteria (Auto) (Negative) /HPF Urine Mucus /HPF 11/24/20 Range/Units 13:01 WBC (4.5-11.0) K/mm3 RBC (3.65-5.03) M/mm3 Hgb (10.1-14.3) gm/dl Hct (30.3-42.9) % MCV (79-97) fl MCH (28-32) pg MCHC (30-34) % RDW (13.2-15.2) % Plt Count (140-440) K/mm3 Lymph % (Auto) (13.4-35.0) % Parmer % (Auto) (0.0-7.3) % Eos % (Auto) (0.0-4.3) % Baso % (Auto) (0.0-1.8) % Lymph # (Auto) (1.2-5.4) K/mm3 Parmer # (Auto) (0.0-0.8) K/mm3 Eos # (Auto) (0.0-0.4) K/mm3 Baso # (Auto) (0.0-0.1) K/mm3 Seg Neutrophils % (40.0-70.0) % Seg Neutrophils # (1.8-7.7) K/mm3 PT (12.2-14.9) Sec. INR (0.87-1.13) Sodium (137-145) mmol/L Potassium (3.6-5.0) mmol/L Chloride (98-107) mmol/L Carbon Dioxide (22-30) mmol/L Anion Gap mmol/L BUN (7-17) mg/dL Creatinine (0.6-1.2) mg/dL Estimated GFR ml/min BUN/Creatinine Ratio % Glucose (65-100) mg/dL Calcium (8.4-10.2) mg/dL Magnesium (1.7-2.3) mg/dL Total Bilirubin (0.1-1.2) mg/dL AST (5-40) units/L ALT (7-56) units/L Alkaline Phosphatase (35-129) units/L Total Creatine Kinase (30-135) units/L Troponin T (0.00-0.029) ng/mL Total Protein (6.3-8.2) g/dL Albumin (3.9-5) g/dL Albumin/Globulin Ratio % TSH (0.270-4.200) mlU/mL Urine Color Yellow (Yellow) Urine Turbidity Clear (Clear) Urine pH 6.0 (5.0-7.0) Ur Specific Jackson 1.008 (1.003-1.030) Urine Protein <15 mg/dl (Negative) mg/dL Urine Glucose (UA) >=500 (Negative) mg/dL Urine Ketones Neg (Negative) mg/dL Urine Blood Sm (Negative) Urine Nitrite Neg (Negative) Urine Bilirubin Neg (Negative) Urine Urobilinogen < 2.0 (<2.0) mg/dL Ur Leukocyte Esterase Neg (Negative) Urine WBC (Auto) 1.0 (0.0-6.0) /HPF Urine RBC (Auto) 1.0 (0.0-6.0) /HPF U Epithel Cells (Auto) 1.0 (0-13.0) /HPF Urine Bacteria (Auto) 1+ (Negative) /HPF Urine Mucus Few /HPF - Radiology Data Radiology results: report reviewed CT HEAD WITHOUT CONTRAST INDICATION: weakness TECHNIQUE: All CT scans at this location are performed using CT dose reduction for ALARA by means of automated exposure control. COMPARISON: 06/08/2020 FINDINGS: BRAIN: No hemorrhage or mass effect are seen. No evidence of acute infarction is noted. Mild atrophic changes are again seen. Slight white matter microvascular changes are again noted. ORBITS: Normal as visualized. SOFT TISSUES OF HEAD: Normal. CALVARIUM: Normal. VISUALIZED PARANASAL SINUSES AND MASTOID AIR CELLS: Clear. ADDITIONAL FINDINGS: None. IMPRESSION: No acute intracranial abnormality. - Medical Decision Making This patient presents to the emergency department with a complaint of some generalized weakness and fatigue, nausea with vomiting and leg cramps. On examination she does not have any focal, motor or sensory deficits and her cranial nerves are intact. CT scan of the head did not show any hemorrhage, large vessel occlusion, or any other acute process. Chest x-ray did not show any pneumonia, pleural effusions, pneumothorax, or any other acute process. The patient's labs shows mild hyponatremia with a sodium of 129, hypokalemia with a potassium of 3.2, hypomagnesemia with a level of 1.4, some renal insufficiency, hyperglycemia without evidence of DKA, and some transaminitis. She was given some IV fluid resuscitation, oral potassium chloride, IV magnesium. Patient was given a Flexeril for the muscle cramping and she later asked for medication for her neuropathy. I checked the patient's listing on the [facility] prescription monitoring system and she mostly has pregabalin, without any excessive prescriptions for opiates. Patient was reevaluated multiple times over multiple hours and says she is feeling improved and asking for discharge home. The patient's electrolyte abnormalities should be within normal limits after the treatment. We discussed dietary changes and close glucose monitoring for her hyperglycemia. The patient has been given multiple outpatient referrals for primary care and has also been given a referral for nephrology. She understands to stay away from NSAIDs and acetaminophen and alcohol. She will return to the emergency department with any worsening of her symptoms or with any acute distress. Critical Care Time: No Critical care attestation.: If time is entered above; I have spent that time in minutes in the direct care of this critically ill patient, excluding procedure time. ED Disposition Clinical Impression: Hyponatremia, Hypokalemia, Renal insufficiency, Hyperglycemia, Abnormal LFTs (liver function tests) Disposition: - TO HOME OR SELFCARE Is pt being admited?: No Condition: Stable Instructions: Acute Kidney Injury, Adult, Hypokalemia, Hyperglycemia, Potassium Content of Foods Additional Instructions: Please follow-up with a primary care physician in the next few days. I am giving you multiple referrals for primary care physicians and a local primary care clinic. I am also giving you a referral for a local master electrician (kidney doctor), Dr. Rendon, to follow-up regarding your decreased kidney function found on your laboratory testing done today. Because of this decreased kidney function, please avoid any NSAIDs such as ibuprofen, Aleve, Advil, naproxen. Your liver enzymes were also slightly elevated today. Because of this, please avoid any Tylenol/acetaminophen, or any alcohol use. Return to the emergency department with any worsening of your symptoms, new or concerning symptoms not addressed during this current emergency department visit, or with any acute distress. You have been prescribed a medication that is sedating and therefore should not be taken prior to driving, working, and responsible for children and in no way should be mixed with alcohol of any quantity. Prescriptions: Pregabalin [Lyrica] 150 mg PO DAILY PRN #15 cap PRN Reason: Pain , Severe (7-10) Referrals: PRIMARY MD JULIET [Primary Care Provider] - 3-5 Days DENVER MI MD [Staff Physician] - 3-5 Days DIETER CONTRERAS MD [Staff Physician] - 3-5 Days MIRNA LEMUS MD [Staff Physician] - 3-5 Days VIC RENDON MD [Staff Physician] - 3-5 Days [facility] [Provider Group] - 3-5 Days Time of Disposition: 14:41
[2020-11-24 11:33] LABS: Basophils % (Auto) 0.7 % (0.0-1.8); Eosinophils % (Auto) 0.9 % (0.0-4.3); Hemoglobin 10.1 gm/dl (10.1-14.3); Lymphocytes # (Auto) 0.9 K/mm3 (1.2-5.4); Lymphocytes % (Auto) 18.1 % (13.4-35.0); Mean Corpuscular HGB Conc 35 % (30-34); Mean Corpuscular Volume 77 fl (79-97); Monocytes # (Auto) 0.5 K/mm3 (0.0-0.8); Monocytes % (Auto) 9.4 % (0.0-7.3); Platelet Count 152 K/mm3 (140-440); Red Blood Count 3.75 M/mm3 (3.65-5.03); Red Cell Distribution Width 18.2 % (13.2-15.2)
[2020-11-24] MEDS: CYCLOBENZAPRINE 10 MG TAB PO ONE (11:34)
--- NOTE | 2020-11-24 11:39 | XRay Report ---
CHEST 1 VIEW 11/24/2020 10:25 AM INDICATION / CLINICAL INFORMATION: SOB. COMPARISON: One view of the chest from 06/26/2020. FINDINGS: SUPPORT DEVICES: None. HEART / MEDIASTINUM: No significant abnormality. LUNGS / PLEURA: Clear lungs. No significant pleural effusion. No pneumothorax. ADDITIONAL FINDINGS: No significant additional findings. IMPRESSION: 1. No acute abnormality of the chest. Signer Name: Alexey Moore MD Signed: 11/24/2020 11:34 AM Workstation Name: [id number]
[2020-11-24 11:45] LABS: INR 1.45 (0.87-1.13)
[2020-11-24 11:54] LABS: Albumin 3.2 g/dL (3.9-5); Calcium 9.6 mg/dL (8.4-10.2)
[2020-11-24] MEDS ORDERED: POTASSIUM CHLORIDE ER 20 MEQ TAB PO ONE (12:02)
[2020-11-24] MEDS ORDERED: SODIUM CHLORIDE 0.9% 500 ML 500 ML IV ONE (12:02)
[2020-11-24] MEDS ORDERED: MAGNESIUM SULFATE 2 GM/50 ML BAG IV ONE (12:19)
[2020-11-24 13:20] LABS: Bacteria,Urine 1+ /HPF (Negative); Bilirubin,Urine NEG (Negative); Blood,Urine SM (Negative); Color,Urine Yellow (Yellow); Mucus,Urine FEW /HPF; Protein,Urine <15 mg/dL mg/dL (Negative); Urobilinogen,Urine < 2.0 mg/dL (<2.0)
[2020-11-24] MEDS ORDERED: PREGABALIN 75 MG CAP PO ONE (13:41)
--- NOTE | 2020-11-24 13:57 | Cat Scan Report ---
CT HEAD WITHOUT CONTRAST INDICATION: weakness TECHNIQUE: All CT scans at this location are performed using CT dose reduction for ALARA by means of automated exposure control. COMPARISON: 06/08/2020 FINDINGS: BRAIN: No hemorrhage or mass effect are seen. No evidence of acute infarction is noted. Mild atrophic changes are again seen. Slight white matter microvascular changes are again noted. ORBITS: Normal as visualized. SOFT TISSUES OF HEAD: Normal. CALVARIUM: Normal. VISUALIZED PARANASAL SINUSES AND MASTOID AIR CELLS: Clear. ADDITIONAL FINDINGS: None. IMPRESSION: No acute intracranial abnormality. Signer Name: Festus Beth MD Signed: 11/24/2020 1:53 PM Workstation Name: [id number]
[2020-11-24 14:56] VITALS: BP 144/86
== END 2020-11-24 16:30 | disposition home or self-care (01) ==
LOC: ED 10:05
DX: E11.65 Type 2 diabetes mellitus with hyperglycemia (principal); N28.9 Disorder of kidney and ureter, unspecified; E87.6 Hypokalemia; E87.1 Hypo-osmolality and hyponatremia; R94.5 Abnormal results of liver function studies; R51.9 Headache, unspecified; I10 Essential (primary) hypertension; Z98.51 Tubal ligation status; Z79.1 Long term (current) use of non-steroidal anti-inflammatories (NSAID); Z79.899 Other long term (current) drug therapy
CPT/HCPCS: 36415; 70450; 71045; 80053; 81001; 82550; 83735; 84443; 84484; 85025; 85610; 96365; 96375; 99284; J2405; J3475; J7040

== ENCOUNTER 2021-04-04 18:28 | Emergency (ER) | payer OTHER | END 2021-04-04 18:45 | disposition left against medical advice (07) | LOC: ED 18:28 | DX: M25.511 Pain in right shoulder (principal); Z53.21 Procedure and treatment not carried out due to patient leaving prior to being seen by health care provider ==

== ENCOUNTER 2021-08-27 15:42 | Emergency (ER) | payer OTHER | END 2021-08-27 21:58 | disposition left against medical advice (07) | LOC: ED 15:42 | DX: L08.9 Local infection of the skin and subcutaneous tissue, unspecified (principal); Z53.21 Procedure and treatment not carried out due to patient leaving prior to being seen by health care provider ==